=== PATIENT | male | born 1970 | race Caucasian/White ===

== ENCOUNTER → 2018-03-01 18:10 | Outpatient (CLI) | payer OTHER, SELFPAY ==
--- NOTE | 2018-03-01 | DI.MRI.S_ITS ---
PROCEDURE: MR PELVIS WO CON INDICATIONS: SI JOINT PAIN TECHNIQUE: Noncontrast axial and oblique coronal T1 spin echo and STIR through the sacroiliac joints. COMPARISON: [facility], MR, MR LUMBAR SPINE WO CON, 03/01/2018, 18:26. [facility], MR, MR PELVIS WITHOUT CONTRAST, 07/01/2017, 15:08. FINDINGS: Image quality: Excellent. Bones: The sacroiliac joints appear intact. No adjacent bone marrow edema to suggest active sacroiliitis. No bony ankylosis. No suspicious marrow space occupying lesions. Soft tissues: No presacral masses. Rectum appears normal in caliber and wall thickness. No pathologic free pelvic fluid. IMPRESSION: No trauma to the pelvis is seen, no evidence of sacroiliitis or ankylosing spondylitis. Source of current SI joint pain is not identified. Dictated by: Lukasz Tineo M.D. on 03/02/2018 at 12:08 Approved by: Lukasz Tineo M.D. on 03/02/2018 at 12:11
--- NOTE | 2018-03-01 18:14 | DI.MRI.S_ITS ---
PROCEDURE: MR LUMBAR SPINE WO CON INDICATIONS: SACROILITIS; TECHNIQUE: Noncontrast sagittal T1 spin echo and T2 fast echo, sagittal STIR, axial T1 and T2 fast spin echo through the lumbar spine. In cases with scoliosis, additional coronal T2 fast spin echo may be performed. COMPARISON: [facility], , L-SPINE WITHOUT CONTRAST, 01/14/2008, 8:25. FINDINGS: Image quality: Excellent. Alignment and Curvature: There is normal bony alignment. Bone Marrow: Mild reactive endplate changes noted adjacent to the L1-L2, L2-L3, L4-L5 and L5-S1 discs. No acute vertebral body compression fractures. Spinal Cord: Conus medullaris terminates at the T12 level. Visualized cord demonstrates normal signal and size. Paraspinous Soft Tissues: No paravertebral masses. L1-L2: Slight loss of the signal. Minimal, diffuse disc bulge. Mild bilateral facet hypertrophy. No central stenosis. Mild bilateral neural foraminal narrowing. No neural impingement. L2-L3: Loss of disc signal and height. Moderate, diffuse disc bulge. Moderate facet and mild ligamentum flavum hypertrophy. Moderate narrowing of the central canal. Moderate right and severe left neural foraminal narrowing with flattening deformity exiting left L2 nerve root. L3-L4: Loss of disc signal. Minimal, diffuse disc bulge. Mild to moderate bilateral facet hypertrophy. Mild ligamentum flavum hypertrophy. Mild to moderate narrowing of the central canal. Moderate bilateral neural foraminal narrowing. No neural impingement. L4-L5: Loss of disc signal and height. Moderate, diffuse disc bulge. Small central disc protrusion superimposed on diffuse disc bulge. Mild to moderate bilateral facet and moderate ligamentum flavum hypertrophy. Severe narrowing of the central canal. Moderate to severe right and moderate left neural foraminal narrowing. L5-S1: Slight loss of the signal. Mild right and moderate left facet hypertrophy. No central stenosis. Mild left neural foraminal narrowing. No neural impingement IMPRESSION: 1. Multilevel degenerative disc disease. 2. Multilevel facet arthropathy. 3. Severe L4-L5 central canal stenosis. Moderate to L2-L3 central canal narrowing. Mild to moderate L3-L4 central canal narrowing. 4. Moderate right and severe left L2-L3 neural foraminal narrowing. Moderate to severe right and moderate left L4-L5 neural foraminal narrowing. Moderate bilateral L3-L4 neural foraminal narrowing. Mild bilateral L1-L2 neural foraminal narrowing. Mild left L5-S1 neural foraminal narrowing. 5. Flattened deformity of the exiting left L2 nerve root secondary to neural foraminal narrowing. Please correlate with clinical data. Dictated by: Lita Irene MD, PhD on 03/02/2018 at 15:19 Approved by: Lita Irene MD, PhD on 03/02/2018 at 15:32
== END ==
PROVIDERS: Family Provider Family Medicine; PCP Family Medicine; Visit Provider Family Medicine
DX: M53.3 Sacrococcygeal disorders, not elsewhere classified (principal); M51.36 Other intervertebral disc degeneration, lumbar region; M47.816 Spondylosis without myelopathy or radiculopathy, lumbar region; M48.061 Spinal stenosis, lumbar region without neurogenic claudication
CPT/HCPCS: 72148; 72195

== ENCOUNTER 2019-05-09 08:07 | Emergency (ER) | payer OTHER, SELFPAY ==
[2019-05-09 08:10] VITALS: BP 149/104; PULSE 74; RESP 18; TEMP 36.2; O2SAT 95; BMI 38.0
--- NOTE | 2019-05-09 08:35 | ED_ITS ---
HPI - Headache General Chief Complaint: Headache Stated Complaint: Headache for 10 days Time Seen by Provider: 05/09/19 08:33 Source: patient Mode of arrival: Ambulatory Limitations: no limitations History of Present Illness HPI Narrative: Patient is a 49-year-old male who presents with headache ongoing for the last 10 days. He he actually had a head CT as an outpatient which I do not have record of 3 days ago which was negative. He apparently gets frequent sinus infections her pre as an had 1 and number of years he has however had 2 episodes of meningitis from sinus infection. He has had some body aches but no fever chills he has no neck pain he has no numbness tingling or weakness. He says the here on top of his head is sensitive to touch he feels nauseous but no vomiting. MD Complaint: headache Onset (ago): day(s) Location: frontal Severity: moderate Quality: aching Related Data Home Medications Medication Instructions Recorded Confirmed Budesonide Sinus 6 mg IRRIGATION DIRECTED 05/09/19 05/09/19 allopurinol 100 mg PO BID 05/09/19 05/09/19 colchicine 0.6 mg PO BID 05/09/19 05/09/19 lisinopril 10 mg PO DAILY 05/09/19 05/09/19 meloxicam 15 mg PO DAILY 05/09/19 05/09/19 Allergies Allergy/AdvReac Type Severity Reaction Status Date / Time codeine [CODEINE] Allergy Unknown ITCH-UNKNOWN Unverified 08/19/17 12:57 SEVERITY PER PT zolpidem [ZOLPIDEM] AdvReac Severe I FREAKED Unverified 08/19/17 12:57 OUT Review of Systems Review of Systems ROS Unobtainable: All systems reviewed & are unremarkable except as noted in HPI and below Constitutional Constitutional: Denies chills, Denies fever(s), Reports headache(s), Denies lethargy and Denies weakness Eyes Eyes: Denies change in vision, Denies eye discharge, Denies irritation and Denies loss of vision ENT Ears, Nose, Mouth, and Throat: Denies change in voice, Reports headache(s), Den ies neck pain and Denies sore throat Cardiovascular Cardiovascular: Denies chest pain, Denies irregular heart rhythm, Denies lightheadedness, Denies palpitations, Denies dyspnea, Denies dyspnea on exertion and Denies orthopnea Respiratory Respiratory: Denies cough, Denies dyspnea, Denies dyspnea on exertion and Denies wheezing Gastrointestinal Gastrointestinal: Denies abdominal pain, Denies change in bowel habits, Denies diarrhea, Denies nausea and Denies vomiting Genitourinary Genitourinary: Denies hematuria, Denies flank pain, Denies urinary incontinence and Denies urinary urgency Musculoskeletal Musculoskeletal: Denies neck pain Integumentary/Breasts Skin/Breast: Denies pruritus, Denies erythema, Denies rash and Denies wounds Neurologic Neurologic: Reports as per HPI, Denies confusion, Reports headache(s), Denies loss of vision and Denies weakness Psychiatric Psychiatric: Denies anxiety, Denies confusion, Denies depression, Denies homicidal ideation and Denies suicidal ideation Endocrine Endocrine: Denies palpitations Allergic/Immunologic Allergic/Immunologic: Denies wheezing Patient History Medical History (Updated 05/09/19 @ 11:33 by Ketty Wesley DO) Meningitis (Acute) Sinusitis (Acute) Exam Initial Vital Signs Initial Vital Signs: Vital Signs Temperature 97.2 F L 05/09/19 08:10 Pulse Rate 74 05/09/19 08:10 Respiratory Rate 18 05/09/19 08:10 Blood Pressure 149/104 H 05/09/19 08:10 Pulse Oximetry 95 05/09/19 08:10 GENERAL: Alert well-appearing and in no acute distress. HEENT: Head atraumatic,EOMI, pupils reactive, face symmetric, neck is supple no meningeal signs CARDIOVASCULAR: Regular rate and rhythm without murmurs, rubs or gallops. RESPIRATORY: Breath sounds equal bilaterally, no wheezes rales or rhonchi. ABDOMEN: Soft, nontender. Normoactive bowel sounds all 4 quadrants. No guarding or rebound. EXTREMITIES: Normal range of motion, no clubbing or edema. Neurovascularly intact NEUROLOGICAL: Alert and oriented x4.Normal gait and speech. Cranial nerves II through XII grossly intact. Gluer Machine Operator strength equal bilaterally SKIN: Warm, dry, no laceration, no petechiae, no rashes or lesions. Course Orders Ordered: ED Orders 05/09/19 09:24 Complete Blood Count AUTO DIFF Stat Comprehensive Metabolic Panel Stat 05/09/19 09:35 Influenza A & B (PCR) Stat 05/09/19 10:36 CT head/brain wo con Stat Discontinued Medications Diphenhydramine HCl (Benadryl) 25 mg IV NOW ONE Stop: 05/09/19 08:53 Last Admin: 05/09/19 09:29 Dose: 25 mg Documented by: BOB Hydromorphone HCl (Dilaudid) 0.5 mg IV NOW ONE Stop: 05/09/19 10:34 Last Admin: 05/09/19 10:57 Dose: 0.5 mg Documented by: DOROTHEA Sodium Chloride (Normal Saline 0.9%) 1,000 mls @ 1,000 mls/hr IV BOLUS ONE Stop: 05/09/19 09:51 Last Infusion: 05/09/19 10:52 Dose: 0 mls/hr Documented by: Admin: 05/09/19 09:27 Dose: 1,000 mls/hr Documented by: BOB Ketorolac Tromethamine (Toradol) 30 mg IV NOW ONE Stop: 05/09/19 08:53 Last Admin: 05/09/19 09:28 Dose: 30 mg Documented by: BOB Prochlorperazine (Compazine) 10 mg IV NOW ONE Stop: 05/09/19 08:53 Last Admin: 05/09/19 09:31 Dose: 10 mg Documented by: BOB Vital Signs Vital signs: Vital Signs - 8 hr 05/09/19 08:10 05/09/19 10:00 05/09/19 11:00 Temperature 97.2 F L Pulse Rate 74 75 52 L Respiratory Rate 18 16 17 Blood Pressure 149/104 H Blood Pressure [Left Arm] 129/86 127/89 Pulse Oximetry 95 99 93 05/09/19 11:42 Temperature Pulse Rate 50 L Respiratory Rate 14 Blood Pressure 122/77 Blood Pressure [Left Arm] Pulse Oximetry 96 MDM - Headache Lab Data Attestation: I reviewed the patient's lab results. Result diagrams: 05/09/19 09:24 05/09/19 09:24 Labs: Lab Results 05/09/19 05/09/19 05/09/19 Range/Units 09:24 09:24 09:35 WBC 5.3 (4.5-11.0) X10^3/uL RBC 4.96 (4.5-5.9) X10^6/uL Hgb 14.7 (13.5-17.5) g/dL Hct 43.4 (41-53) % MCV 87.6 (80-100) fL MCH 29.7 (26-34) PG MCHC 33.9 (30-36) % RDW 13.0 (11.6-14.8) % Plt Count 186 (150-400) X10^3/uL Neut % (Auto) 51.0 (50-75) % Lymph % (Auto) 33.6 (25-40) % Placer % (Auto) 9.3 (3-14) % Eos % (Auto) 5.4 H (2-4) % Baso % (Auto) 0.7 (0-2) % Neut # (Auto) 2700 (2894-9456) /uL Lymph # (Auto) 1800 (9846-4321) /uL Placer # (Auto) 500 (0-900) /uL Eos # (Auto) 300 (0-450) /uL Baso # (Auto) 0 (0-100) /uL Sodium 141 (137-145) mmol/L Potassium 4.6 (3.4-5.1) mmol/L Chloride 106 (98-107) mmol/L Carbon Dioxide 25 (22-32) mmol/L BUN 12 (9-20) mg/dL Creatinine 0.90 (0.66-1.25) mg/dL Estimated GFR > 60.0 (>60) mL/min BUN/Creatinine Ratio 13.3 (6-22) Glucose 105 H (70-100) mg/dL Calcium 9.8 (8.4-10.2) mg/dL Total Bilirubin 0.6 (0.2-1.3) mg/dL AST 44 (17-59) IU/L ALT 27 (<50) IU/L Alkaline Phosphatase 49 (38-126) U/L Total Protein 7.0 (6.3-8.2) g/dL Albumin 4.5 (3.5-5.0) g/dL Globulin 2.5 (1.7-4.1) g/dL Albumin/Globulin Ratio 1.8 (1.0-2.8) Influenza A (RT-PCR) Flu a negative (NEGATIVE) Influenza B (RT-PCR) Flu b negative (NEGATIVE) Imaging Data CT scan - head: Radiologist's Impression: PROCEDURE: CT HEAD/BRAIN WO CON INDICATIONS: headache TECHNIQUE: Noncontrast 4.5 mm thick angled axial sections acquired from the foramen magnum to the vertex, with coronal and sagittal reformats. For radiation dose reduction, the following was used: automated exposure control, adjustment of mA and/or kV according to patient size. COMPARISON: [facility], CT, HEAD WITHOUT CONTRAST, 07/21/2013, 6:55. FINDINGS: Image quality: Excellent. CSF spaces: Basal cisterns are patent. No extra-axial fluid collections. The ventricles are symmetric in size and shape. Brain: No intracranial bleeds or masses. There is cerebral volume loss for age, with resultant ventricular and sulcal prominence. There are periventricular and deep white matter chronic small vessel ischemic changes. There is intracranial internal carotid artery atherosclerosis. Skull and face: Calvarium and visualized facial bones appear intact, without suspicious lesions. There is scalp edema and mild swelling image 10/2 at the right posterior region Sinuses: Visualized sinuses and mastoids are clear. IMPRESSION: No acute intracranial process. Soft tissue swelling of the right posterior scalp, nonspecific and recommend clinical correlation Dictated by: Kareem Mcdaniel M.D. on 05/09/2019 at 11:22 Approved by: Kareem Mcdaniel M.D. on 05/09/2019 at 11:2 MDM Narrative Medical decision making narrative: Patient's pain is better after Dilaudid head CT is negative. Head is re-examined CT noted some swelling on the right is side I did not appreciate any clinically he denies any trauma. I recommended ice. Continue to rest and conservative treatment. At this time his neck is supple he has no signs of meningitis. Recommend outpatient follow-up Discharge Plan Departure Patient Disposition: Home Clinical Impression: Headache Qualifiers: Headache type: unspecified Headache chronicity pattern: acute headache Intractability: not intractable Qualified Code(s): R51 - Headache Discharge Date/Time: 05/09/19 11:42 Instructions: DI for Headache Activity Restrictions/Additional Instructions: *You have been diagnosed with headache *What to do: Increase fluid intake at this time no sign of sinus infection or influenza. *Continue to take medications as directed Tylenol 1000 mg every 6 hours if needed for kzef-ao-omvqadqd pain *Follow up with your primary care provider in 2-3 days *Return to ER if you should have worsening headache weakness persistent vomiting or any new, worsening or concerning symptoms Prescriptions: No Action meloxicam 15 mg tablet 15 mg PO DAILY RF: 0 allopurinol 100 mg tablet 100 mg PO BID RF: 0 lisinopril 10 mg tablet 10 mg PO DAILY RF: 0 colchicine 0.6 mg tablet 0.6 mg PO BID RF: 0 Budesonide Sinus 6 mg 6 mg irrigation DIRECTED RF: 0 Referrals: Mitul Archer MD [Primary Care Provider] -
[2019-05-09] MEDS: SODIUM CHLORIDE 0.9% 1,000 ML 1000 ML IV (09:27)
[2019-05-09 09:28] LABS: Add Manual Diff / Slide Review NO; Basophils Absolute Auto 0 /uL (0-100); Basophils Percent Auto 0.7 % (0-2); Eosinophils Absolute Auto 300 /uL (0-450); Eosinophils Percent Auto 5.4 % (2-4); Hematocrit 43.4 % (41-53); Hemoglobin 14.7 g/dL (13.5-17.5); Lymphocytes Absolute Auto 1800 /uL (1100-4500); Lymphocytes Percent Auto 33.6 % (25-40); Mean Corpuscular HGB Conc 33.9 % (30-36); Mean Corpuscular Hemoglobin 29.7 PG (26-34); Mean Corpuscular Volume 87.6 fL (80-100); Monocytes Absolute Auto 500 /uL (0-900); Monocytes Percent Auto 9.3 % (3-14); Neutrophils Absolute Auto 2700 /uL (1500-7000); Platelet Count 186 X10^3/uL (150-400); Red Blood Cell Count 4.96 X10^6/uL (4.5-5.9); White Blood Cell Count 5.3 X10^3/uL (4.5-11.0)
[2019-05-09] MEDS: KETOROLAC 60 MG/2 ML VIAL 30 MG IV (09:28)
[2019-05-09] MEDS: diphenhydrAMINE 50 MG/ML VIAL 25 MG IV (09:29)
[2019-05-09] MEDS: PROCHLORPERAZINE 10 MG/2 ML VIAL IV (09:31)
[2019-05-09 09:41] LABS: Alanine Aminotransferase 27 IU/L (<50); Albumin 4.5 g/dL (3.5-5.0); Albumin Globulin Ratio 1.8 (1.0-2.8); Alkaline Phosphatase 49 U/L (38-126); Aspartate Aminotransferase 44 IU/L (17-59); BUN Creatinine Ratio 13.3 (6-22); Bilirubin Total 0.6 mg/dL (0.2-1.3); Blood Urea Nitrogen 12 mg/dL (9-20); Calcium 9.8 mg/dL (8.4-10.2); Carbon Dioxide 25 mmol/L (22-32); Chloride 106 mmol/L (98-107); Estimated Glomerular Filt Rate > 60.0 mL/min (>60); Globulin 2.5 g/dL (1.7-4.1); Glucose 105 mg/dL (70-100); HEMOLYSIS 49 (0-50); Potassium 4.6 mmol/L (3.4-5.1); Sodium 141 mmol/L (137-145)
[2019-05-09 10:00] VITALS: BP 129/86; PULSE 75; RESP 16; O2SAT 99
--- NOTE | 2019-05-09 10:36 | DI.CT.S_ITS ---
PROCEDURE: CT HEAD/BRAIN WO CON INDICATIONS: headache TECHNIQUE: Noncontrast 4.5 mm thick angled axial sections acquired from the foramen magnum to the vertex, with coronal and sagittal reformats. For radiation dose reduction, the following was used: automated exposure control, adjustment of mA and/or kV according to patient size. COMPARISON: [facility], CT, HEAD WITHOUT CONTRAST, 07/21/2013, 6:55. FINDINGS: Image quality: Excellent. CSF spaces: Basal cisterns are patent. No extra-axial fluid collections. The ventricles are symmetric in size and shape. Brain: No intracranial bleeds or masses. There is cerebral volume loss for age, with resultant ventricular and sulcal prominence. There are periventricular and deep white matter chronic small vessel ischemic changes. There is intracranial internal carotid artery atherosclerosis. Skull and face: Calvarium and visualized facial bones appear intact, without suspicious lesions. There is scalp edema and mild swelling image 10/2 at the right posterior region Sinuses: Visualized sinuses and mastoids are clear. IMPRESSION: No acute intracranial process. Soft tissue swelling of the right posterior scalp, nonspecific and recommend clinical correlation Dictated by: Kareem Mcdaniel M.D. on 05/09/2019 at 11:22 Approved by: Kareem Mcdaniel M.D. on 05/09/2019 at 11:26
[2019-05-09] MEDS: HYDROMORPHONE 0.5 MG INJ IV (10:57)
[2019-05-09 11:00] VITALS: BP 127/89; PULSE 52; RESP 17; O2SAT 93
[2019-05-09 11:42] VITALS: BP 122/77; PULSE 50; RESP 14; O2SAT 96
[2019-05-09 11:48] LABS: Influenza B - CEPHEID Flu B NEGATIVE (NEGATIVE)
[2019-05-09 11:50] LABS: Influenza A - CEPHEID Flu A NEGATIVE (NEGATIVE)
== END 2019-05-09 11:42 | disposition home or self-care (01) ==
PROVIDERS: Emergency Provider Emergency Medicine; PCP Family Medicine
DX: R51 Headache (principal); R11.0 Nausea
CPT/HCPCS: 36415; 70450; 80053; 85025; 87502; 96361; 96374; 96375; 99284; J0780; J1170; J1200; J1885

== ENCOUNTER → 2019-05-31 16:03 | Outpatient (CLI) | payer OTHER, SELFPAY ==
--- NOTE | 2019-05-31 | DI.MRI.S_ITS ---
PROCEDURE: MR CERVICAL SPINE WO CON INDICATIONS: radiculopathy, cervical region TECHNIQUE: Noncontrast sagittal T1 spin echo and T2 fast spin echo, sagittal STIR, foraminal oblique sagittal T2 fast spin echo, and axial gradient echo or T2 fast spin echo through the cervical spine. COMPARISON: [facility], RF, CERVICAL SNRB, 07/11/2016, 8:40. [facility], CT, C-SPINE WITHOUT CONTRAST, 10/03/2015, 10:56. [facility], MR, C-SPINE WITHOUT CONTRAST, 12/27/2015, 19:30. [facility], CT, CT HEAD/BRAIN WO CON, 05/09/2019, 10:48. [facility], MR, C-SPINE WITHOUT CONTRAST, 06/30/2016, 13:51 (images only, no report). [facility], CT, CT SINUS WITHOUT CONTRAST, 05/06/2019, 14:51. [facility], CT, C-SPINE WITHOUT CONTRAST, 06/30/2016, 13:41. FINDINGS: Image quality: Diagnostic, with note made of motion artifact. Alignment and Curvature: There is normal bony alignment. Bone Marrow: Marrow demonstrates normal overall signal. Spinal Cord: Visualized spinal cord has normal size and signal. No cerebellar tonsillar herniation. Paraspinous Soft Tissues: No paravertebral masses. Prevertebral soft tissues are normal in thickness. Since the prior MRI, there has been expansion of the postoperative hardware, which is now seen anteriorly C4-C6. Disc spacers are seen at C4-C5 and C5-C6. C2-C3: The disc height is well-preserved. Loss of disc signal is seen at this level. Vqoc-qd-nzdcoupt disc osteophyte complex is seen, which is eccentric to the left. There is moderate left-sided and moderate right-sided facet hypertrophy seen. There is moderate to severe left-sided and moderate right-sided neural foraminal narrowing seen. When comparison is made with the prior examination, these findings are similar. C3-C4: Moderate to prominent disc osteophyte complex is seen. There is moderate to severe bilateral neural foraminal narrowing seen. Moderate central canal narrowing is seen, position mass effect upon the ventral spinal cord. When comparison is made with the prior examination, these findings are similar. C4-C5: Postoperative changes are seen anteriorly at this level. Moderate disc osteophyte complex is seen, which is eccentric to the right. There is moderate to prominent right-sided and moderate left-sided facet hypertrophy seen. There is at least moderate bilateral neural foraminal narrowing seen. No significant central canal narrowing is seen. The degree of central canal narrowing is clearly improved compared to the prior MRI. C5-C6: There are postoperative changes seen at this level. Mtty-vk-gadwvokb disc osteophyte complex is seen. There is at least moderate bilateral neural foraminal narrowing seen in the sacrum mild central degree of central canal narrowing is improved compared to the prior MRI. C6-C7: Mild loss of disc height is seen. Loss of disc signal is seen. Moderate generalized disc osteophyte complex is seen. Uncovertebral joint hypertrophy is seen at this level. There is moderate to severe bilateral neural foraminal narrowing seen. Moderate central canal narrowing is seen, with associated mass effect upon the ventral spinal cord, as on series 4 image 31. These degenerative changes are slightly progressed compared to the 2017 MRI. C7-T1: The disc height is well-preserved. Loss of disc signal is seen at this level. Fgpc-hl-kxcqcikm bilateral neural foraminal narrowing can be seen. Yzof-dr-viqcifux central canal narrowing is seen. When comparison is made with the prior examination, these findings are similar. IMPRESSION: Revision of postoperative change since the prior 2017 MRI examination. Clear interval improvement in the degree of central canal narrowing at C4-C5 and C5-C6 compared to 2017 Progression of degenerative change at C6-C7 compared to 2017. Dictated by: Salvatore Ware M.D. on 05/31/2019 at 17:10 Approved by: Salvatore Ware M.D. on 05/31/2019 at 17:19
== END ==
PROVIDERS: PCP Family Medicine; Visit Provider Physician Assistant Medical
DX: M47.22 Other spondylosis with radiculopathy, cervical region (principal); M48.02 Spinal stenosis, cervical region
CPT/HCPCS: 72141

== ENCOUNTER 2019-07-01 07:45 | Outpatient (CLI) | payer OTHER, SELFPAY ==
[2019-07-01] VITALS (9 sets, daily range): BP systolic 87–137; BP diastolic 58–111; PULSE 72–81; RESP 16–18; TEMP 36.2; O2SAT 95–99
--- NOTE | 2019-07-01 07:46 | DI.RAD.S_ITS ---
PROCEDURE: PAIN C/T INTERLAMINAR INJECT INDICATIONS: CERVICAL DISC DISPLACEMENT FINDINGS: Immediate postoperative examination after anterior fusion plating spanning from C4-C5 and C6, with faintly visualized interbody disc prosthesis devices at C4-5 and C5-6. IMPRESSION: Normal alignment established after C4-C6 fusion procedure with interbody disc prosthesis devices placed at C4-5 and C5-6. Dictated by: Lukasz Tineo M.D. on 07/01/2019 at 10:17 Approved by: Lukasz Tineo M.D. on 07/01/2019 at 10:19
[2019-07-01] MEDS: MIDAZOLAM 5 MG/5 ML VIAL IV (08:51)
[2019-07-01] MEDS: fentaNYL 100 MCG/2 ML INJ 50 MCG IV (08:51)
[2019-07-01] MEDS: IOPAMIDOL 15 ML VIAL 3 ML INJ (08:56)
[2019-07-01] MEDS: BUPIVACAINE 0.25% (PF) VIAL 2 ML INJ (08:56)
[2019-07-01] MEDS: DEXAMETHASONE 10 MG/ML VIAL 30 MG INJ (08:57)
--- NOTE | 2019-07-01 09:00 | PC.NURSE ---
ASSISTING PT OFF TABLE AND TRANSPORTING TO POST PROC AREA IN STABLE CONDITION. PASSING RN CARE OF PT OFF TO SMITH Rooney RN.
--- NOTE | 2019-07-01 09:05 | PM.PROC.1 ---
Procedures Date/Time Date of procedure: 07/01/19 Time of procedure: 09:05 General Procedure description: PREOP DIAGNOSIS 1. CERVICAL STENOSIS, 2. CERVICAL HNP WITH UPPER EXTREMITY RADICULAR FEATURES, POST OP DIAGNOSIS 1. CERVICAL STENOSIS, 2. CERVICAL HNP WITH UPPER EXTREMITY RADICULAR FEATURES, PROCEDURES 1. FLUORSCOPICALLY GUIDED CONTRAST CONTROLLED INTERLAMINAR EPIDURAL STEROID INJECTION - C6/7 TL CLEVE PHYSICIAN: Pete Guy DO INDICATIONS Kain is referred by Dr. Meade and Dr. Archer for treatment of Cervical HNP with Upper Extremity Paresthesias. FINDINGS Cervical Stenosis due to disc deterioration and nerve root irritation and nerve root irritation DESCRIPTION OF PROCEDURE Fluoroscopically guided, contrast-controlled C6/7 translaminar epidural steroid injection with conscious sedation. Following review of allergy and review of potential side effects and complications, including, but not necessarily limited to, infection, allergic reaction, local tissue breakdown, temporary as well as permanent nerve injury, stroke, paralysis, and possible , the patient indicated that patient understood and agreed to proceed. An informed consent document was signed by the patient, witnessed by a nurse, and placed in the patient's chart. Additionally, other treatment options including modalities, medications, and physical therapy were reviewed with the patient. After review of previous anaesthesic history and IV conscious sedation the patient was deemed safe to proceed with todays procedure with IV conscious sedation as ASA class II designation. Safety time-out was performed to confirm patient ID, procedure to be performed and site of procedure. IV sedation was accomplished with a combination of 5mg of Versed and 50mcg of Fentanyl administered by the RN after DO order, titrated to patient comfort during the course of the procedure while the patient remained responsive to all verbal commands. In the prone position, following sterile prep and drape of the cervical region, the C6/7 translaminar space was identified fluoroscopically. The skin was anesthetized via a 25-gauge 1.5-inch needle with 1% lidocaine solution. At this point, a 25-gauge, 2.5-inch short bevel spinal needle was atraumatically introduced and advanced under fluoroscopic guidance into epidural space at the C6/7 translaminar space. Depth was confirmed on lateral view. Radiological data, including multiple fluoroscopic views of the cervical spine, reveal a spinal needle at the C6/7 translaminar space. Lateral views then show placement of the needle in the epidural space. Subsequent views show contrast material flowing superiorly and inferiorly in the epidural space. DSA fluoroscopy with live contrast injection, once again, confirmed no vascular or intrathecal uptake. At this point, using loss of resistance technique with saline and air, the epidural space was entered. Following negative aspiration, injection of approximately 1.5 cc of Isovue-200 with live fluoroscopy in the AP view confirmed epidural flow in the epidural space without vascular or intrathecal uptake observed. Subsequently, a test dose of 1cc of 0.25%marcaine solution was injected and patient was observed for two minutes without signs or symptoms of complications, including abdominal pain, shortness of breath, bilateral upper or lower extremity weakness, nausea and vomiting, prior to steroid injection. At this point, 3cc or 30mg of dexamethasone was then injected without incident. The patient tolerated the procedure well without signs or symptoms of complications prior to being transferred to the recovery area for further monitoring, The patient was then transferred to the recovery area where they were observed for an appropriate period of time after the injection. The patient reported a VAS score of 6 prior to the procedure and a post-procedure VAS of 0. Total Fluoroscopy Time: 26 seconds Total Conscious Time: 24min POST OP INSTRUCTIONS The patient was provided a Pain Log to continue to record their response to the target-specific procedure prior to follow-up visit with the referring provider. Additionally, specific post-injection care instructions and a contact number to our office were provided if concerns arise regarding possible complications associated with the procedure are suspected. Pete Guy DO Complications: none
--- NOTE | 2019-07-01 14:42 | PC.NURSE ---
late entry: Pt returned to post procedure via wheelchair. He is A/O and able to transfer independently from [facility] to chair. Monitoring resumed from OXANA Ramírez
== END 2019-07-01 09:28 ==
LOC: RAD 07:46
PROVIDERS: PCP Family Medicine; Referring Provider Family Medicine; Visit Provider Physical Medicine & Rehabilitation
DX: M48.02 Spinal stenosis, cervical region (principal); M50.123 Cervical disc disorder at C6-C7 level with radiculopathy
CPT/HCPCS: 62321; 99152; J1100; J2250; J3010

== ENCOUNTER → 2019-10-13 18:32 | Outpatient (CLI) | payer OTHER, SELFPAY ==
--- NOTE | 2019-10-13 18:33 | DI.MRI.S_ITS ---
PROCEDURE: MR CERVICAL SPINE WO CON INDICATIONS: BILATERAL ARM PAIN AND BURNING TECHNIQUE: Noncontrast sagittal T1 spin echo and T2 fast spin echo, sagittal STIR, foraminal oblique sagittal T2 fast spin echo, and axial gradient echo or T2 fast spin echo through the cervical spine. COMPARISON: [facility], CR, SPINE CERVICAL 2 OR 3VW, 06/16/2016, 16:04. [facility], , MR CERVICAL SPINE WO CON, 05/31/2019, 16:21. FINDINGS: Image quality: Excellent. Alignment and Curvature: Postsurgical changes related to ACDF from the level of C4-C6. Straightening of the normal lordotic curvature. Bone Marrow: Multilevel degenerative endplate sclerosis and spurring. Diffuse facet arthropathy. Spinal Cord: Visualized spinal cord has normal size and signal. No cerebellar tonsillar herniation. Paraspinous Soft Tissues: No paravertebral masses. Prevertebral soft tissues are normal in thickness. C2-C3: Mild canal narrowing. Severe bilateral foraminal stenosis with nerve root compression. This appears unchanged on the right and progressed on the left C3-C4: Mild/moderate canal narrowing which is unchanged severe bilateral foraminal stenoses, probably unchanged C4-C5: Mild canal narrowing. Severe bilateral foraminal stenoses. These appear grossly unchanged C5-C6: Mild canal narrowing. Mild left foraminal stenosis. Severe right foraminal stenosis with nerve root compression, overall grossly unchanged. C6-C7: Severe canal stenosis, unchanged. Mild to moderate left foraminal stenosis unchanged. Severe right foraminal stenosis with nerve root compression also unchanged C7-T1: Mild canal narrowing. Mild left foraminal stenosis. Moderate right foraminal narrowing without nerve root compression, grossly unchanged IMPRESSION: Slight interval progression in severe left C2-C3 foraminal stenosis since the prior study. Elsewhere, grossly unchanged examination as above Redemonstration of severe C6-C7 canal stenosis. Numerous bilateral severe foraminal stenoses as detailed above by spinal level. Dictated by: Kareem Mcdaniel M.D. on 10/14/2019 at 8:23 Approved by: Kareem Mcdaniel M.D. on 10/14/2019 at 8:41
== END ==
PROVIDERS: PCP Family Medicine; Referring Provider Neurological Surgery; Visit Provider Neurological Surgery
DX: M79.601 Pain in right arm (principal); M79.602 Pain in left arm; M48.02 Spinal stenosis, cervical region; R20.8 Other disturbances of skin sensation
CPT/HCPCS: 72141

== ENCOUNTER → 2019-11-28 10:06 | Outpatient (CLI) | payer OTHER, SELFPAY ==
--- NOTE | 2019-11-28 | DI.RAD.S_ITS ---
PROCEDURE: XR CERVICAL SPINE 2V OR 3V INDICATIONS: Arthrodesis status TECHNIQUE: For view(s) of the cervical spine were acquired. COMPARISON: [facility], XA, PAIN C/T INTERLAMINAR INJECT, 07/01/2019, 8:49. [facility], CT, C-SPINE WITHOUT CONTRAST, 06/30/2016, 13:41. FINDINGS: Bones: No fractures or dislocations to the T1 level. The lateral masses of C1 appear intact on the odontoid view. No suspicious bony lesions. Prior CT scanning from 06/12/16 and show on presence of an articulated intervertebral disc prosthesis at C4-5 and C6-7. Subsequent pain management plain film imaging 07/01/19 had shown an anterior fusion plate crossing from C4 through C6, with what appears to be interbody disc prosthesis device is unchanged from earlier, at the 2 intervening levels. The current examination shows removal of the prior C4 through C6 anterior fusion plate, placement of a C6-C7 anterior fusion plate, maintenance of the interbody disc prosthesis devices at C4-5 and C5-6, and placement of a new intervertebral disc prosthesis at C6-C7. Normal alignment is stab wished. Soft tissues: No prevertebral soft tissue swelling. IMPRESSION: Normal alignment is established after anterior fusion plate revision and placement of new fusion plate between C6 and C7 with interbody disc prosthesis also at that level. Dictated by: Lukasz Tineo M.D. on 11/28/2019 at 11:40 Approved by: Lukasz Tineo M.D. on 11/28/2019 at 11:45
== END ==
PROVIDERS: PCP Family Medicine; Referring Provider Neurological Surgery; Visit Provider Neurological Surgery
DX: Z09 Encounter for follow-up examination after completed treatment for conditions other than malignant neoplasm (principal); Z98.1 Arthrodesis status
CPT/HCPCS: 72040

== ENCOUNTER → 2019-12-21 16:23 | Outpatient (CLI) | payer OTHER, SELFPAY ==
--- NOTE | 2019-12-21 16:24 | DI.MRI.S_ITS ---
PROCEDURE: MR CERVICAL SPINE WO/W CON INDICATIONS: right C8 radicu s/p C4-C7 ACDF TECHNIQUE: Noncontrast sagittal T1 spin echo and T2 fast spin echo, sagittal STIR, foraminal oblique sagittal T2 fast spin echo, axial gradient echo or T2 fast spin echo through the cervical spine. After the administration of contrast, axial and sagittal T1 spin echo with fat saturation through the cervical spine. COMPARISON: [facility], , CERVICAL SPINE 2 OR 3 VIEWS, 09/27/2015, 12:14. [facility], CT, C-SPINE WITHOUT CONTRAST, 10/03/2015, 10:56. [facility], MR, C-SPINE WITHOUT CONTRAST, 12/27/2015, 19:30. [facility], CT, C-SPINE WITHOUT CONTRAST, 06/30/2016, 13:41. [facility], MR, C-SPINE WITHOUT CONTRAST, 06/30/2016, 13:51. [facility], CR, XR CERVICAL SPINE 2V OR 3V, 11/28/2019, 10:08. [facility], , MR CERVICAL SPINE WO CON, 10/13/2019, 18:57. FINDINGS: Image quality: There is artifact associated with the metallic hardware. Alignment and curvature: There is normal bony alignment. Marrow: Marrow is normal in overall signal, without suspicious enhancement. Spinal cord: Visualized spinal cord has normal size and signal. No cerebellar tonsillar herniation. No abnormal intramedullary enhancement. Paraspinous soft tissues: No paravertebral masses or suspicious enhancement. Postoperative changes are seen, with disc spacers at the C4-C5 and C5-C6 levels. Anterior fixation hardware is seen at C6-C7, with a disc spacer seen at this level. There is associated susceptibility artifact. C2-3: The disc height is well-preserved. Loss of disc signal is seen at this level. Moderate disc osteophyte complex is seen, which is eccentric to the left. Moderate facet joint hypertrophy is seen. There is moderate to severe right-sided and moderate left-sided neural foraminal narrowing seen. Mild central canal narrowing is seen. Stable from the prior study. C3-4: The disc height is well-preserved. Loss of disc signal is seen at this level. Bridging endplate osteophytes are seen. Moderate generalized disc osteophyte complex is seen. Moderate facet joint hypertrophy is seen. Moderate to severe bilateral neural foraminal narrowing is seen. There is at least moderate central canal narrowing seen. There is associated mass effect upon the ventral spinal cord. Stable from the prior study. C4-5: The disc height is well-preserved. Loss of disc signal is seen at this level. At least moderate disc osteophyte complex is seen, which is eccentric to the right. There is moderate bilateral neural foraminal narrowing seen, right worse than left. There is moderate to severe bilateral neural foraminal narrowing seen. Mild central canal narrowing is seen. No significant change from the prior. C5-6: Moderate generalized disc osteophyte complex is seen. There is moderate to prominent right-sided and moderate left-sided facet hypertrophy seen. There is moderate to severe right-sided and [id number] left-sided neural foraminal narrowing seen. Mild central canal narrowing is seen. Stable from the prior study. C6-7: Moderate generalized disc osteophyte complex is seen. Prominent facet hypertrophy is seen. There is moderate to severe bilateral neural foraminal narrowing seen, right worse than left. At least moderate central canal narrowing is seen. There is associated mass effect upon the ventral spinal cord. No significant change from the prior. C7-T1: Mild loss of disc height is seen. Loss of disc signal is seen. Moderate generalized disc osteophyte complex is seen. Moderate bilateral neural foraminal narrowing is seen, left worse than right. Mild to moderate central canal narrowing is seen. When comparison is made with the prior examination, these findings are similar. IMPRESSION: Postoperative changes and multiple levels of degenerative change are seen, which are similar to the recent prior MRI examination. No abnormal enhancement is seen. Dictated by: Salvatore Ware M.D. on 12/21/2019 at 17:02 Approved by: Salvatore Ware M.D. on 12/21/2019 at 17:09
== END ==
PROVIDERS: PCP Family Medicine; Referring Provider Physical Medicine & Rehabilitation; Visit Provider Physical Medicine & Rehabilitation
DX: M47.22 Other spondylosis with radiculopathy, cervical region (principal); Z98.1 Arthrodesis status
CPT/HCPCS: 72156

== ENCOUNTER → 2020-01-23 13:41 | Outpatient (CLI) | payer OTHER, SELFPAY ==
[2020-01-25 17:24] LABS: COVID19 Sendout Not Detected (Not Detect)
== END ==
PROVIDERS: PCP Family Medicine; Visit Provider Nurse Practitioner
DX: Z11.59 Encounter for screening for other viral diseases (principal)
CPT/HCPCS: 87635

== ENCOUNTER 2020-01-26 08:14 | Outpatient (CLI) | payer OTHER, SELFPAY ==
[2020-01-26] VITALS (8 sets, daily range): BP systolic 133–154; BP diastolic 75–99; PULSE 66–79; RESP 12–19; TEMP 36.4; O2SAT 95–99
--- NOTE | 2020-01-26 08:16 | DI.RAD.S_ITS ---
PROCEDURE: PAIN C/T INTERLAMINAR INJECT INDICATIONS: SPINAL STENOSIS COMPARISON: [facility], , PAIN C/T INTERLAMINAR INJECT, 07/01/2019, 8:49. FINDINGS: Fluoroscopic spot filming was performed to verify placement of a spinal needle at the C7-T1 level, as labeled on the films. Appropriate location(s) of the needle tip(s) was confirmed by injection of iodinated contrast. IMPRESSION: Intraprocedural examination within normal limits. Dictated by: Salvatore Ware M.D. on 01/26/2020 at 8:45 Approved by: Salvatore Ware M.D. on 01/26/2020 at 8:45
[2020-01-26] MEDS: fentaNYL 100 MCG/2 ML INJ 50 MCG IV (08:53)
[2020-01-26] MEDS: MIDAZOLAM 5 MG/5 ML VIAL IV (08:53)
[2020-01-26] MEDS: DEXAMETHASONE 10 MG/ML VIAL 30 MG INJ (09:00)
[2020-01-26] MEDS: IOPAMIDOL 15 ML VIAL 3 ML INJ (09:00)
[2020-01-26] MEDS: BUPIVACAINE 0.25% (PF) VIAL 2 ML INJ (09:00)
--- NOTE | 2020-01-26 09:21 | P.PCN_ITS ---
Date/Time/Diagnoses Date of procedure: 01/26/20 Time of procedure: 09:22 Pre-procedure diagnosis: 1. CERVICAL STENOSIS, 2. CERVICAL HNP WITH UPPER EXTREMITY RADICULAR FEATURES Procedure Notes Procedure: FLUORSCOPICALLY GUIDED CONTRAST CONTROLLED INTERLAMINAR EPIDURAL STEROID INJECTION - C7/T1 TL CLEVE Indications: Kain is referred by Dr. Archer for treatment of Cervical Stenosis. Physician: Pete Guy Total Fluoroscopy time (seconds): 30 Total sedation minutes: 30 Complications: none Procedure in detail & Post-procedure care: DESCRIPTION OF PROCEDURE Following review of allergy and review of potential side effects and co mplications, including, but not necessarily limited to, infection, allergic reaction, local tissue breakdown, temporary as well as permanent nerve injury, stroke, paralysis, and possible , the patient indicated that patient understood and agreed to proceed. An informed consent document was signed by the patient, witnessed by a nurse, and placed in the patient's chart. Additionally, other treatment options including modalities, medications, and physical therapy were reviewed with the patient. After review of previous anaesthesic history and IV conscious sedation the patient was deemed safe to proceed with todays procedure with IV conscious sedation as ASA class II designation. Safety time-out was performed to confirm patient ID, procedure to be performed and site of procedure. IV sedation was accomplished with a combination of 5mg of Versed and 50mcg of Fentanyl administered by the RN after DO order, titrated to patient comfort during the course of the procedure while the patient remained responsive to all verbal commands. In the prone position, following sterile prep and drape of the cervical region, the C7/T1 translaminar space was identified fluoroscopically. The skin was anesthetized via a 25-gauge 1.5-inch needle with 1% lidocaine solution. At this point, a 25-gauge, 2.5-inch short bevel spinal needle was atraumatically introduced and advanced under fluoroscopic guidance into epidural space at the C7/T1 translaminar space. Depth was confirmed on lateral view. Radiological data, including multiple fluoroscopic views of the cervical spine, reveal a spinal needle at the C7/T1 translaminar space. Lateral views then show placement of the needle in the epidural space. Subsequent views show contrast material flowing superiorly and inferiorly in the epidural space. DSA fluoroscopy with live contrast injection, once again, confirmed no vascular or intrathecal uptake. At this point, using loss of resistance technique with saline and air, the epidural space was entered. Following negative aspiration, injection of approximately 1.5 cc of Isovue-200 with live fluoroscopy in the AP view confirmed epidural flow in the epidural space without vascular or intrathecal uptake observed. Subsequently, a test dose of 1cc of 1% lidocaine solution was injected and patient was observed for two minutes without signs or symptoms of complications, including abdominal pain, shortness of breath, bilateral upper or lower extremity weakness, nausea and vomiting, prior to steroid injection. At this point, 3cc or 30mg of dexamethasone was then injected without incident. The patient tolerated the procedure well without signs or symptoms of complications prior to transfer to the recovery area for further monitoring The patient was then transferred to the recovery area where they were observed for an appropriate period of time after the injection. The patient reported a VAS score of 9 prior to the procedure and a post-procedure VAS of 1. POST OP INSTRUCTIONS The patient was provided a Pain Log to continue to record the patient's response to the target-specific procedure prior to the patient's follow-up visit with the referring physician. Additionally, specific post-injection care instructions and a contact number to our office were provided if concerns arise regarding possible complications associated with the procedure are suspected.
== END 2020-01-26 09:38 | disposition home or self-care (01) ==
LOC: RAD 08:16
PROVIDERS: PCP Family Medicine; Referring Provider Family Medicine; Visit Provider Physical Medicine & Rehabilitation
DX: M48.02 Spinal stenosis, cervical region (principal); M50.123 Cervical disc disorder at C6-C7 level with radiculopathy
CPT/HCPCS: 62321; 99152; 99153; J1100; J2250; J3010

== ENCOUNTER → 2020-02-15 12:13 | Outpatient (CLI) | payer OTHER, SELFPAY ==
--- NOTE | 2020-02-15 | DI.CT.S_ITS ---
PROCEDURE: CT CERVICAL SPINE WO CON INDICATIONS: Neck and arm pain following surgery TECHNIQUE: Noncontrast 3 mm thick sections acquired from the skull base to the T4 level. Sagittal and coronal reformats were then constructed. For radiation dose reduction, the following was used: automated exposure control, adjustment of mA and/or kV according to patient size. COMPARISON: [facility], MR, MR CERVICAL SPINE WO/W CON, 12/21/2019, 17:13. [facility], CR, XR CERVICAL SPINE 2V OR 3V, 11/28/2019, 10:08. [facility], MR, MR CERVICAL SPINE WO CON, 10/13/2019, 18:57. [facility], CT, C-SPINE WITHOUT CONTRAST, 06/30/2016, 13:41. [facility], MR, MR CERVICAL SPINE WO CON, 05/31/2019, 16:21. FINDINGS: Image quality: This examination is somewhat limited by quantum mottle artifact. Bones: No fractures or dislocations. Visualized superior ribs are intact. Postoperative changes are seen, with anterior fusion plate seen at C6-C7. This fusion plate appears well seated. The screws are unremarkable, without findings of loosening. Prior screw tracks can be seen anteriorly at C4 and C5. Disc spacers are seen at C4-C5, C5-C6, and C6-C7. Partially bridging anterior osteophytes are seen at C2-C3 and at C3-C4. Focal degenerative change can also be seen involving the C1-C2 interface anteriorly. There is overall straightening of the normal cervical lordosis. Degenerative changes are seen throughout, with multiple levels of moderate to severe neural foraminal narrowing. Soft tissues: Prevertebral soft tissues are normal in thickness. No paravertebral hematomas. No apical pneumothoraces. IMPRESSION: Unremarkable postoperative hardware, with an anterior fixation plate seen at C6-C7. Underlying degenerative changes are seen. Multiple levels of cervical spine degenerative change are seen, which are better displayed on the recent prior MRI examination. Dictated by: Salvatore Ware M.D. on 02/15/2020 at 11:52 Approved by: Salvatore Ware M.D. on 02/15/2020 at 11:55
== END ==
PROVIDERS: PCP Family Medicine; Referring Provider Neurological Surgery; Visit Provider Neurological Surgery
DX: M54.2 Cervicalgia (principal); M47.812 Spondylosis without myelopathy or radiculopathy, cervical region; M79.603 Pain in arm, unspecified; G89.18 Other acute postprocedural pain; Z98.1 Arthrodesis status
CPT/HCPCS: 72125

== ENCOUNTER → 2020-06-20 13:19 | Outpatient (CLI) | payer OTHER, SELFPAY ==
[2020-06-20 13:43] LABS: COVID19 -Nasal RAPID Negative (Negative)
== END ==
PROVIDERS: Visit Provider Physician Assistant
DX: Z01.812 Encounter for preprocedural laboratory examination (principal); Z20.822 Contact with and (suspected) exposure to COVID-19
CPT/HCPCS: 87635; C9803

== ENCOUNTER 2020-06-22 13:20 | Day surgery (SDC) | payer OTHER, SELFPAY ==
--- NOTE | 2020-06-22 | PATH_ITS ---
[facility] Accession Number: [id number] . 01 Material submitted: . sigmoid colon - SIGMOID COLON POLYP . 02 Diagnosis: Sigmoid Colon, Polyp, Biopsy: Hyperplastic polyp. MRV 06/27/2020 1406 Local . 02 Electronically signed: . Paola Ball MD, Pathologist NPI- [id number] . 01 Gross description: . SIGMOID COLON POLYP: Received in formalin is 1 fragment(s) of joyce, soft tissue measuring 0.3 x 0.3 x 0.3 cm submitted entirely in 1 cassette(s) /RC 06/25/2020 1730 Local . 02 Pathologist provided ICD-10: K63.5 . 02 CPT . 233462 Performed at: 01 [facility] [address] [id number] MD Alex Iraheta MD Phone: [phone] Performed at: 02 [facility] [address] [place], [place] [id number] MD Paola Ball MD Phone: [phone]
--- NOTE | 2020-06-22 12:21 | PM.HP.1 ---
History of Present Illness History of Present Illness Date Patient Seen: 06/22/20 Chief complaint: SDC Narrative: 50 Years Old Male seen today for consideration of a screening colonoscopy. There have been no lower GI symptoms suggesting disease such as change in bowel habits, bleeding, abdominal pain or anemia. There's been no family history of colon cancer or colon polyps. Overall health issues have been stable, including no major cardiac events for at least 6 weeks. Past Medical History: Peptic ulcer disease Anemia Prediabetes INSOMNIA MEMORY/COGNITIVE CHANGES HYPERLIPIDEMIA NEUROPATHY, NON-DIABETIC DISC DISEASE, DEGENERATIVE DISC, LUMBAR SACROILIITIS SCIATICA, LEFT HTN DEPRESSION, MAJOR, SINGLE EPISODE, MODERATE History of cervical discectomy NECK AND BACK PAIN DEGENERATIVE DISC DISEASE, CERVICAL SPINE, W/RADICULOPATHY OBSTRUCTIVE SLEEP APNEA, resolved ABDOMINAL PAIN PEPTIC ULCER DISEASE, resolved SINUSITIS GOUT Past Surgical History: Sinus surgery (02/18/11) C-spine surgery times , 2016 Lumbar back surgery Family History: Reviewed history from 04/08/2014 and no changes required: Father: Asthma Mother: Hypertension Social History: 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 Patient History Medical History (Updated 06/14/20 @ 07:24 by [employer]) Cervical radiculopathy at C8 Cervical stenosis of spinal canal Meningitis Sinusitis Surgical History Hx of neck surgery S/P cervical spinal fusion Family & Social History Tobacco & Substance use: Smoking Status Never smoker alcohol intake current Meds Home Medications and Allergies Home Medications Medication Instructions Recorded Confirmed Type Budesonide Sinus 6 mg IRRIGATION DIRECTED 05/09/19 06/22/20 History allopurinol 100 mg PO BID 05/09/19 06/22/20 History colchicine 0.6 mg PO BID 05/09/19 06/22/20 History lisinopril 10 mg PO DAILY 05/09/19 06/22/20 History duloxetine 60 mg capsule,delayed 60 mg PO QAM #60 cap 03/26/20 06/22/20 Rx release gabapentin 600 mg tablet See Rx Instructions .ROUTE 06/11/20 06/22/20 Rx .COMPLEX #90 tab Allergies Allergy/AdvReac Type Severity Reaction Status Date / Time codeine [CODEINE] Allergy Unknown ITCH-UNKNOWN Verified 06/22/20 13:53 SEVERITY PER PT zolpidem [ZOLPIDEM] AdvReac Severe I FREAKED Verified 06/22/20 13:53 OUT Review of Systems Review of Systems ROS: Yes All systems reviewed with the patient and are negative except as otherwise documented Exam Narrative Exam Narrative: General: well developed, well nourished, in no acute distress, Head: normocephalic and atraumatic, Lungs: normal respiratory effort, clear bilaterally to auscultation, no wheezes rales or rhonchi. Heart: normal rate and regular rhythm, no murmurs, rubs, gallops, or clicks, Abdomen: abdomen soft and non-tender without masses, organomegaly, or abdominal wall hernias, bowel sounds positive. Skin: intact without suspicious lesions or rashes, Psych: alert and cooperative; normal mood and affect; normal attention span and concentration; cognition, remote and recent memory appear to be intact, Assessment & Plan Assessment & Plan narrative: 1. Screening for colon cancer Plan for colonoscopy. The nature and character of the procedure as well as anticipated results were discussed. The possibility of not completing the procedure was also discussed. Possible complications including aspiration pneumonia, bleeding, perforation and reaction to medications either for sedation or preparation and missed lesions were discussed. Questions were answered and proceeding to the colonoscopy was elected. Informed consent signed. I sincerely appreciate the referral allowing me to participate in this patient's care. Please contact me with any questions or concerns.
--- NOTE | 2020-06-22 12:22 | PM.OP.ENDO ---
Operative Date/Time/Diagnoses Date of procedure: 06/22/20 Procedure Notes SCOAP/Timeout: 15:09 Procedure in detail: ENDOSCOPIST: Zenobia Escamilla MD Sedation RN: Mary Crook RN Sedation start time: 3:10 p.m. Sedation end time: 3:33 p.m. PROCEDURE: Colonoscopy with biopsy INDICATIONS: 1. Screening for colon cancer MEDICATION: Levsin 0.125 mg sublingual, incremental doses of Versed and fentanyl until appropriate level sedation achieved. ASA CLASS: 2 CECAL WITHDRAWAL TIME: 8 minutes COMPLICATIONS: None. EXTENT OF PROCEDURE: Cecum. QUALITY OF PREP: Good with portions of liquid stool. PROCEDURE: Prior to insertion of the colonoscope, a digital rectal examination was accomplished with circumferential palpation of the distal rectal mucosa without significant findings being noted. The high-definition colonoscope was passed into the rectum in the usual fashion and advanced over to the cecum without difficulty. The ileocecal valve, appendiceal stoma, and medial wall all could be inspected and no abnormalities were seen. ASCENDING COLON: As the colonoscope was withdrawn, care was taken to expose and inspect the haustral folds and no abnormalities were seen. HEPATIC FLEXURE: Normal, no polyps, diverticula or other abnormalities. TRANSVERSE COLON: Normal, no polyps, diverticula or other abnormalities. DESCENDING COLON: Normal, no polyps, diverticula or other abnormalities. SIGMOID COLON: 2 mm polyp removed with cold biopsy forceps, otherwise, normal, no diverticula or other abnormalities. RECTUM: Normal. J maneuver was produced. There was no significant perianal disease. The J maneuver was broken. The remainder of the rectum was inspected and there was no external hemorrhoid disease. The scope was withdrawn. IMPRESSION: 1. Sigmoid polyp x1, 2 mm, removed with cold biopsy forceps PLAN: 1. Follow-up in clinic status post pathology results. The possibility of a missed lesion including a malignancy has been discussed with the patient previously. Potential alarm symptoms have been discussed and should be reported immediately.
[2020-06-22] MEDS: HYOSCYAMINE 0.125 MG TABLET PO (13:34)
[2020-06-22] MEDS: LACTATED RINGERS 1,000 ML 200 ML IV (13:34)
[2020-06-22 13:44] VITALS: BP 165/99; PULSE 85; RESP 18; TEMP 36.1; O2SAT 98; BMI 36.6
[2020-06-22] MEDS: MIDAZOLAM 5 MG/5 ML VIAL IV (15:14)
[2020-06-22] MEDS: fentaNYL 250 MCG/5 ML INJ IV (15:22)
[2020-06-22 15:38] VITALS: BP 161/74; PULSE 75; RESP 12; TEMP 36.6; O2SAT 96
--- NOTE | 2020-06-22 15:41 | SUR.PHASEI ---
Dr. Escamilla spoke with pt at bedside in PACU.
[2020-06-22 15:42] VITALS: BP 153/92; PULSE 86; RESP 13; O2SAT 97
[2020-06-22 15:49] VITALS: BP 160/101; PULSE 82; RESP 13; TEMP 36.7; O2SAT 96
--- NOTE | 2020-06-22 15:51 | SUR.PHASEI ---
Stable PACU stay.
[2020-06-22 15:52] VITALS: BP 167/108; PULSE 93; RESP 14; TEMP 37.2; O2SAT 97
[2020-06-22 16:04] VITALS: BP 141/90; PULSE 68; RESP 14; O2SAT 97
--- NOTE | 2020-06-22 16:11 | SUR.PHASEII ---
pt denies any complaints. Denies pain and is ready to go.
== END 2020-06-22 16:20 | disposition home or self-care (01) ==
PROVIDERS: PCP Family Medicine; Referring Provider Student in an Organized Health Care Education/Training Program; Visit Provider Student in an Organized Health Care Education/Training Program
PROC: 0DJD8ZZ Inspection of Lower Intestinal Tract, Via Natural or Artificial Opening Endoscopic (ICD-10-PCS; CPT 45378; principal; 2020-06-22 14:30)
DX: Z12.11 Encounter for screening for malignant neoplasm of colon (principal); I10 Essential (primary) hypertension; K63.5 Polyp of colon
CPT/HCPCS: 45380; J2250; J3010

== ENCOUNTER → 2020-08-09 15:51 | Outpatient (CLI) | payer OTHER, SELFPAY ==
[2020-08-09] MEDS: COVID-19 VACC #1, MRNA(MOD) 100 MCG/0.5 ML VIAL IM (16:02)
== END ==
PROVIDERS: PCP Family Medicine; Visit Provider Internal Medicine
DX: Z23 Encounter for immunization (principal)
CPT/HCPCS: 0011A; 91301

== ENCOUNTER → 2020-09-12 11:57 | Outpatient (CLI) | payer OTHER, SELFPAY ==
[2020-09-12] MEDS: COVID-19 VACC #2, MRNA(MOD) 100 MCG/0.5 ML VIAL IM (12:07)
== END ==
PROVIDERS: PCP Family Medicine; Visit Provider Internal Medicine
DX: Z23 Encounter for immunization (principal)
CPT/HCPCS: 0012A; 91301

== ENCOUNTER → 2023-04-07 15:02 | Outpatient (CLI) | payer OTHER, SELFPAY ==
--- NOTE | 2023-04-07 | DI.RAD.S_ITS ---
PROCEDURE: XR SHOULDER RT MIN 2V INDICATIONS: right shoulder pain TECHNIQUE: 3 views of the shoulder were acquired. COMPARISON: None. FINDINGS: Bones: No acute fractures or dislocations. No suspicious bony lesions. Visualized ribs appear intact. There is moderate AC joint degenerative change. There appears to be old posttraumatic changes involving the midshaft of the clavicle. Soft tissues: No suspicious soft tissue calcifications. IMPRESSION: 1. Noted evidence for acute osseous abnormality involving the right shoulder. 2. Moderate AC joint degenerative change. 3. Old posttraumatic changes midshaft right clavicle. Dictated by: Mitul Nelson M.D. on 04/07/2023 at 16:17 Approved by: Mitul Nelson M.D. on 04/07/2023 at 16:20
== END ==
PROVIDERS: PCP Family Medicine; Referring Provider Family Medicine; Visit Provider Family Medicine
DX: M25.511 Pain in right shoulder (principal)
CPT/HCPCS: 73030

== ENCOUNTER → 2023-04-14 08:08 | Outpatient (CLI) | payer OTHER, SELFPAY ==
--- NOTE | 2023-04-14 | DI.US.S_ITS ---
PROCEDURE: US EXTREMELY NONVASC UPPER RT INDICATIONS: LUMP ON RIGHT ARM TECHNIQUE: Real-time scanning was performed of the right shoulder , with image documentation. COMPARISON: None. FINDINGS: There is an anterior ill-defined hyperechoic 0.9 x 0.3 x 1.0 cm mass within the subcutaneous tissue which corresponds as palpated. There is also a posterior hyperechoic ill-defined 1.5 x 0.5 x 1.6 cm mass which corresponds as palpated. IMPRESSION: Sonographic findings most consistent with lipomas which corresponds as palpated. Please note, in the setting of rapid interval growth, the very rare liposarcoma cannot be differentiated from a lipoma by ultrasound alone. Dictated by: Delaney Roy M.D. on 04/14/2023 at 13:33 Approved by: Delaney Roy M.D. on 04/14/2023 at 13:35
== END ==
PROVIDERS: PCP Family Medicine; Referring Provider Family Medicine; Visit Provider Family Medicine
DX: R22.31 Localized swelling, mass and lump, right upper limb (principal)
CPT/HCPCS: 76882

== ENCOUNTER → 2023-04-24 06:56 | Outpatient (CLI) | payer OTHER, SELFPAY ==
--- NOTE | 2023-04-24 | DI.MRI.S_ITS ---
PROCEDURE: MR SHOULDER RT WO CON INDICATIONS: CHRONIC RIGHT SHOULDER PAIN TECHNIQUE: Noncontrast oblique coronal T2 fast spin echo with fat saturation, oblique sagittal T1 spin echo and T2 fast spin echo with fat saturation, axial T1 spin echo and T2 fast spin echo with fat saturation through the shoulder. COMPARISON: [facility], CR, XR SHOULDER RT MIN 2V, 04/07/2023, 15:03. FINDINGS: Image quality: Images are mildly degraded by patient motion on multiple pulse sequences. Diagnostic information is obtained. Rotator cuff: There is at least high-grade and likely full-thickness tearing of the supraspinatus tendon and anterior infraspinatus tendon at the distal insertions measuring approximately 1.6 cm in anterior-posterior dimension. There is no significant proximal tendon retraction. Findings are superimposed on moderate tendinosis. Teres minor tendon is intact. There is moderate subscapularis tendinosis and low-grade partial intrasubstance tearing at the distal insertion. The rotator cuff musculature is normal in bulk. Bones and bursae: No acute trabecular bone injury or fracture. Chronic traction cystic changes are seen at the posterosuperior humeral head and the greater and lesser tuberosities near the rotator cuff tendon insertions. Mild partial-thickness cartilage irregularity in the glenohumeral joint. Moderate degenerative changes are seen at the acromioclavicular joint with subchondral cystic changes and marginal osteophyte formation. A small amount of fluid is seen in the subacromial/subdeltoid bursa, which likely communicates with the glenohumeral joint space. Small glenohumeral effusion. Capsule and soft tissues: There is nondisplaced tearing of the superior labrum extending to the anterosuperior and posterosuperior labrum. The proximal biceps long head tendon demonstrates moderate tendinosis. There is partial effacement of the normal fat signal in the rotator interval. Glenohumeral ligaments appear to be intact. IMPRESSION: 1. Likely full-thickness tearing of the supraspinatus tendon and the anterior fibers of the infraspinatus tendon at their distal insertions measuring approximately 1.6 cm in anterior-posterior dimension without significant tendon retraction. 2. Moderate subscapularis tendinosis with focal low-grade partial intrasubstance tearing at the distal insertion. 3. Moderate proximal biceps long head tendinosis. 4. Nondisplaced tearing of the superior labrum extending into the anterosuperior and posterosuperior labrum. Grade 2 glenohumeral chondromalacia. 5. Moderate acromioclavicular joint osteoarthrosis. 6. Small subacromial/subdeltoid bursal effusion likely communicates with a small glenohumeral joint effusion. Approved by: Josesito Mccabe M.D. on 04/24/2023 at 10:31
== END ==
PROVIDERS: PCP Family Medicine; Referring Provider Family Medicine; Visit Provider Family Medicine
DX: M19.011 Primary osteoarthritis, right shoulder (principal); M25.411 Effusion, right shoulder; M75.111 Incomplete rotator cuff tear or rupture of right shoulder, not specified as traumatic; S43.431A Superior glenoid labrum lesion of right shoulder, initial encounter; M25.511 Pain in right shoulder; G89.29 Other chronic pain
CPT/HCPCS: 73221

== ENCOUNTER → 2023-07-07 11:26 | Outpatient (CLI) | payer OTHER, SELFPAY ==
--- NOTE | 2023-07-07 | DI.RAD.S_ITS ---
PROCEDURE: XR ELBOW RT 2V INDICATIONS: right elbow pain TECHNIQUE: 2 views of the elbow were acquired. COMPARISON: None. FINDINGS: Bones: No fractures or dislocations. No suspicious bony lesions. Soft tissues: Mild dorsal soft tissue swelling over the olecranon is seen. No elbow joint effusion. No suspicious soft tissue calcifications. IMPRESSION: No acute elbow fracture or dislocation. No significant joint effusion. Dorsal elbow soft tissue swelling, no bony erosive changes. Olecranon bursitis cannot be excluded. Dictated by: Tj Delong M.D. on 07/07/2023 at 14:17 Approved by: Tj Delong M.D. on 07/07/2023 at 14:18
== END ==
LOC: RAD 11:27
PROVIDERS: PCP Family Medicine; Referring Provider Family Medicine; Visit Provider Family Medicine
DX: M25.521 Pain in right elbow (principal)
CPT/HCPCS: 73070

== ENCOUNTER 2023-07-11 07:38 | Emergency (ER) | payer OTHER, SELFPAY ==
[2023-07-11 07:47] VITALS: BP 155/95; PULSE 72; RESP 18; TEMP 36.7; O2SAT 99; BMI 32.5
--- NOTE | 2023-07-11 07:52 | ED.EXTPRO ---
HPI - Extremity Problem General Chief complaint: Extremity Problem,Nontraumatic Stated complaint: TORN R/ SHOULDER MUSCLE/ PAIN Time Seen by Provider: 07/11/23 07:52 Source: patient Mode of arrival: Ambulatory History of Present Illness HPI Narrative: 53yo M presents with shoulder pain. He has history of traumatic injury to right shoulder and is receiving treatment in [place] for this. 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 He has had shoulder pain worsening since last night. He is working up to stem cell transplant, with a plan for operation in [place] today. He is trying Vicodin and Percocet at home, but it is not sufficient to control his pain. He denies fevers, chills, abrupt swelling, rash, focal numbness or weakness that is new. No new trauma. Spouse is driving. He is here solely for pain control to help him get to his facility in [place] today for further procedure. He has history of gout, cervical spine stenosis and disc herniation as well. This does not feel like gout. No chest pain, shortness of breath, bleeding, pus, lightheadedness or passing out, sedation, or any other new symptoms. Related Data Home Medications Medication Instructions Recorded Confirmed Budesonide Sinus 6 mg irrigation DIRECTED 05/09/19 06/22/20 allopurinol 100 mg tablet 100 mg PO BID 05/09/19 06/22/20 colchicine 0.6 mg tablet 0.6 mg PO BID 05/09/19 06/22/20 lisinopril 10 mg tablet 10 mg PO DAILY 05/09/19 06/22/20 Previous Rx's Medication Instructions Recorded gabapentin 600 mg tablet See Rx Instructions .Route 10/22/20 .COMPLEX #90 tabs duloxetine 60 mg capsule,delayed 60 mg PO QAM #60 caps 05/21/21 release Allergies Allergy/AdvReac Type Severity Reaction Status Date / Time codeine [CODEINE] Allergy Unknown ITCH-UNKNOWN Verified 07/11/23 07:52 SEVERITY PER PT zolpidem [ZOLPIDEM] AdvReac Severe I FREAKED Verified 07/11/23 07:52 OUT Review of Systems Review of Systems Narrative: Constitutional: no fever, no chills Eyes: no visual disturbance, no discharge Ears, Nose, Mouth, Throat: no rhinorrhea, no sore throat Cardiovascular: no chest pain, no palpitations Respiratory: no cough, no shortness of breath Gastrointestinal: no abdominal pain, no vomiting, no diarrhea Genitourinary: no dysuria, no hematuria Musculoskeletal: no back pain, no neck stiffness Skin: no rash, no wound Neurological: no focal weakness, no focal numbness Patient History Medical History (Updated 07/11/23 @ 08:19 by Ambrocio Mcgrath MD) Cervical radiculopathy at C8 Cervical stenosis of spinal canal Sinusitis Meningitis Surgical History S/P cervical spinal fusion Hx of neck surgery Social History (Updated 12/19/19 @ 15:04 by Cheyenne Emery LPN) marital status: number of children: 1 household members: spouse Smoking Status: Former smoker alcohol intake: current Smoking Status: Former smoker alcohol intake frequency: a few times a month Substance Use Type: marijuana Exam Narrative Exam Narrative: Const: Appears uncomfortable from shoulder pain, non toxic appearing; remains calm, conversant, pleasant Eyes: PERRLA, EOMI ENT: mucous membranes moist Neck: supple, non-tender Resp: no respiratory distress, clear to auscultation bilaterally Card: regular rate and rhythm, no murmurs Abd: non tender diffusely, no rigidity or rebound or guarding Back: no T or L spine tenderness, no CVA tenderness bilaterally Extrem: no deformities, no swelling bilateral lower extremities; right shoulder with primarily anterior swelling and tenderness, without acute erythema; axillary, median, radial, ulnar nerves strength and sensation fully intact; 2+ distal pulses, soft compartments present, no bleeding or pus 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 He is afebrile, well perfused, neurovascularly intact and appears to be here primarily for pain control. In this setting, in discussion with patient, we are choosing together not to pursue x-ray or labs but rather focus on pain control with plan for patient to be driven straight to his surgeon's office this morning immediately after suitable pain control. I am giving 1 mg IM Dilaudid and will closely reassess. Patient and spouse agree with plan. Patient feeling very comfortable now. He appears stable, not excessively sedated. Spouse will drive him directly to surgeon's office for further assessment. Discharging in stable condition. Repeat exam and vital signs reassuring. Questions answered. Plan reviewed. Patient discharged in stable condition. Orders Ordered: Discontinued Medications Hydromorphone HCl (Hydromorphone 1 Mg Inj) 1 mg IM NOW ONE Stop: 07/11/23 08:00 Last Admin: 07/11/23 08:03 Dose: 1 mg Vital Signs Vital signs: Vital Signs - 8 hr 07/11/23 07:47 Temperature 98.1 F Pulse Rate 72 Respiratory Rate 18 Blood Pressure 155/95 H Pulse Oximetry 99 Oxygen Delivery Method Room Air Discharge Plan Departure Patient Disposition: Released, Other Clinical Impression: Acute shoulder pain Activity Restrictions/Additional Instructions: It was a pleasure taking care of you today. It is important to fully read and understand the below. Please ask us if you have any questions. We help treat you for your shoulder pain this morning. Do not drive or take any other sedating medications prior to being reassessed, as you received narcotics here. Have your spouse drive you DIRECTLY to your appointment today. No tests or assessments are perfect, and your condition could pattern changer time. If your symptoms change or worsen, it is very important you immediately seek medical care. If you have any new or worsening pain, swelling, redness, rash, fever, numbness, weakness, bleeding, difficulty using your body, or anything else that concerns you, please immediately seek medical care. If you have been prescribed any medications: please read the drug package inserts on how to properly use the medication and any potential side effects. If you had labs (blood tests) or imaging (CT scan or x-rays) done during your visit: please follow up on the results of these with your primary care doctor, as discussed. In addition, please know the results we received today may be preliminary. Our usual practice is to follow up on tests within a few days of a patient's discharge from the Emergency Department and notify you of any changes. These may lead to changes to your treatment plan. However, the best way to obtain and interpret these test results is through your Primary Care Provider. If you need to update your contact information, please stop by the front office specialist and alert the Registration personnel before you leave the Emergency Department. Thank you for the opportunity to participate in your healthcare. We are always here and happy to see you in the future. Prescriptions: No Action gabapentin 600 mg tablet See Rx Instructions .ROUTE .COMPLEX Qty: 90 3RF Dose Instruction: take 1 to 2 tablets by mouth three times a day TO BEGIN AT BEDTIME ANDTITRATE TO NERVE PAIN RELIEF Rx Instructions: take 1 to 2 tablets by mouth three times a day TO BEGIN AT BEDTIME ANDTITRATE TO NERVE PAIN RELIEF duloxetine 60 mg capsule,delayed release(DR/EC) 60 mg PO QAM Qty: 60 3RF allopurinol 100 mg tablet 100 mg PO BID lisinopril 10 mg tablet 10 mg PO DAILY Patient Comments: take 1 tablet by mouth once daily for blood pressure colchicine 0.6 mg tablet 0.6 mg PO BID Patient Comments: take 1 tablet by mouth twice a day Budesonide Sinus 6 mg 6 mg irrigation DIRECTED Referrals: Pete Post MD [Primary Care Provider] -
[2023-07-11] MEDS: HYDROMORPHONE 1 MG INJ IM (08:03)
== END 2023-07-11 08:24 | disposition home or self-care (01) ==
PROVIDERS: Emergency Provider Emergency Medicine; PCP Family Medicine
DX: M25.511 Pain in right shoulder (principal)
CPT/HCPCS: 96372; 99283; J1170

== ENCOUNTER 2023-07-15 00:20 | Emergency (ER) | payer OTHER, SELFPAY ==
[2023-07-15 00:30] VITALS: BP 117/98; PULSE 88; RESP 18; TEMP 36; O2SAT 100; BMI 31.1
--- NOTE | 2023-07-15 00:39 | DI.RAD.S_ITS ---
PROCEDURE: XR ELBOW RT MIN 3V INDICATIONS: increased swelling TECHNIQUE: 3 views of the elbow were acquired. COMPARISON: None. FINDINGS: Bones: No fractures or dislocations. No suspicious bony lesions. Soft tissues: Dorsal elbow soft tissue swelling is seen, olecranon bursitis cannot be excluded. No elbow joint effusion. No suspicious soft tissue calcifications. IMPRESSION: No elbow fracture or dislocation. No significant elbow joint effusion. Soft tissue swelling over dorsal aspect or olecranon concerning for bursitis. Dictated by: Tj Delong M.D. on 07/15/2023 at 0:57 Approved by: Tj Delong M.D. on 07/15/2023 at 0:58
[2023-07-15 02:16] VITALS: BP 151/97; PULSE 72; RESP 18; O2SAT 100
[2023-07-15 02:17] VITALS: BP 151/97; PULSE 69; O2SAT 99
[2023-07-15 02:30] VITALS: BP 148/83; PULSE 70; O2SAT 99
[2023-07-15 03:00] VITALS: PULSE 79; O2SAT 99
[2023-07-15 03:01] VITALS: BP 128/97; PULSE 79; RESP 18; O2SAT 99
--- NOTE | 2023-07-15 03:06 | ED_ITS ---
HPI - Extremity Problem General Chief complaint: Extremity Problem,Nontraumatic Stated complaint: torn shoulder muscle, ruptured burrsa rt elbow Time Seen by Provider: 07/15/23 03:06 Source: patient and family Mode of arrival: Ambulatory History of Present Illness HPI Narrative: Patient currently undergoing stem cell infusion/PRP treatment for right shoulder rotator cuff tear and right elbow tenderness presumably from bursal rupture. P resenting today complaining that the oxycodone that he is taken for pain is not improving symptoms and looking for assistance with pain control. He has been in contact with his orthopedist in [place]. At this point he has been unable to sleep it has been a number of days, he can not find a comfortable position even with the use of oxycodone. He was in a couple of days ago and given an IM dose of Dilaudid was able to sleep for almost 24 hours. He has his last stem cell injection later this week and is requesting another dose of IM Dilaudid to get him through the procedure. He describes no fevers, cough, chills. Related Data Home Medications Medication Instructions Recorded Confirmed Budesonide Sinus 6 mg irrigation DIRECTED 05/09/19 06/22/20 allopurinol 100 mg tablet 100 mg PO BID 05/09/19 06/22/20 colchicine 0.6 mg tablet 0.6 mg PO BID 05/09/19 06/22/20 lisinopril 10 mg tablet 10 mg PO DAILY 05/09/19 06/22/20 Previous Rx's Medication Instructions Recorded gabapentin 600 mg tablet See Rx Instructions .Route 10/22/20 .COMPLEX #90 tabs duloxetine 60 mg capsule,delayed 60 mg PO QAM #60 caps 05/21/21 release Allergies Allergy/AdvReac Type Severity Reaction Status Date / Time codeine [CODEINE] Allergy Unknown ITCH-UNKNOWN Verified 07/11/23 07:52 SEVERITY PER PT zolpidem [ZOLPIDEM] AdvReac Severe I FREAKED Verified 07/11/23 07:52 OUT Review of Systems Review of Systems Narrative: Pertinent positive and negative findings as per HPI Patient History Medical History (Updated 07/15/23 @ 03:25 by Tamika Parks MD) Injury of right rotator cuff Cervical radiculopathy at C8 Cervical stenosis of spinal canal Sinusitis Meningitis Surgical History S/P cervical spinal fusion Hx of neck surgery Social History marital status: number of children: 1 household members: spouse Smoking Status: Former smoker alcohol intake: current Smoking Status: Former smoker alcohol intake frequency: a few times a month Substance Use Type: marijuana Exam Initial Vital Signs Initial Vital Signs: Vital Signs Temperature 96.8 F L 07/15/23 00:30 Pulse Rate 88 07/15/23 00:30 Respiratory Rate 18 07/15/23 00:30 Blood Pressure 117/98 H 07/15/23 00:30 Pulse Oximetry 100 07/15/23 00:30 Oxygen Delivery Method Room Air 07/15/23 00:30 General: Alert, in obvious pain, significantly sleep deprived Respiratory: Able to speak in full sentences, no obvious respiratory distress Skin: No obvious rashes, warm and dry Neurologic: Grossly intact no obvious asymmetries or abnormalities Psych: appropriate insight and affect, cooperative Extremity: There was no warmth redness or swelling to the elbow or the shoulder suggesting septic joint. The pain that he describes is chronic and unchanged and the reason he is undergoing current stem cell and PRP treatments Course Orders Ordered: ED Orders 07/15/23 00:39 XR elbow RT min 3V Stat Vital Signs Vital signs: Vital Signs - 8 hr 07/15/23 00:30 07/15/23 02:16 Temperature 96.8 F L Pulse Rate 88 72 Respiratory Rate 18 18 Blood Pressure 117/98 H 151/97 H Pulse Oximetry 100 100 Oxygen Delivery Method Room Air MDM - Extremity (Nontraumatic) MDM Narrative Medical decision making narrative: 53-year-old gentleman currently undergoing stem cell and PRP treatment for rotator cuff tear and bursal injury both on the right side. He has seeing an orthopedic doctor in [place]. He is his last procedure coming up the next couple of days. He does have oxycodone available at home but finds that the pain is intolerable to the point that he is unable to find any comfortable position, he has not been able to sleep in a number of days. He had success and sleeping almost 24 hours after a single dose of IM Dilaudid and returns to the ER today requesting help with pain control to keep him through current procedure. There was no evidence of infection or septic arthritis. He does have oxycodone available to him at home. He has given a dose of IM Dilaudid. His is driving so discharge home is safe. Recommended that rather than 1 oxycodone every 4 hours that he take 2 oxycodone every 6 hours to make sure that he is actually getting adequate pain control rather than staying just under the pain control level. Also discussed stool softeners to make sure that constipation does not become an issue. He has follow up available with his orthopedic surgeon in the next 48 hours. He is safe for discharge Discharge Plan Departure Patient Disposition: Home Clinical Impression: Intractable pain Activity Restrictions/Additional Instructions: I am sorry that you are suffering so much with this shoulder issue You are given a dose of IM Dilaudid in the emergency department today. Hopefully this will help you get some sleep so that you can begin to heal With your oxycodone I would recommend 2 pills every 6 hours rather than 1 pill every 4 hours. I think that you will find the higher dose actually gets 2 pain control which gives you longer periods of pain relief. Make sure that you are using stool softener daily as narcotics will cause constipation which makes michael rything worse. I wish you luck with the rest of your procedures and follow up with your orthopedic surgeon Prescriptions: No Action gabapentin 600 mg tablet See Rx Instructions .ROUTE .COMPLEX Qty: 90 3RF Dose Instruction: take 1 to 2 tablets by mouth three times a day TO BEGIN AT BEDTIME ANDTITRATE TO NERVE PAIN RELIEF Rx Instructions: take 1 to 2 tablets by mouth three times a day TO BEGIN AT BEDTIME ANDTITRATE TO NERVE PAIN RELIEF duloxetine 60 mg capsule,delayed release(DR/EC) 60 mg PO QAM Qty: 60 3RF allopurinol 100 mg tablet 100 mg PO BID lisinopril 10 mg tablet 10 mg PO DAILY Patient Comments: take 1 tablet by mouth once daily for blood pressure colchicine 0.6 mg tablet 0.6 mg PO BID Patient Comments: take 1 tablet by mouth twice a day Budesonide Sinus 6 mg 6 mg irrigation DIRECTED Referrals: Pete Post MD [Primary Care Provider] - Stand Alone Forms: Patient Portal/API
[2023-07-15] MEDS: HYDROMORPHONE 1 MG INJ IM (03:31)
== END 2023-07-15 03:38 | disposition home or self-care (01) ==
PROVIDERS: Emergency Provider Emergency Medicine; PCP Family Medicine
DX: M25.511 Pain in right shoulder (principal)
CPT/HCPCS: 73080; 96372; 99283; J1170

== ENCOUNTER → 2023-07-24 07:12 | Outpatient (CLI) | payer OTHER, SELFPAY ==
--- NOTE | 2023-07-24 07:13 | DI.MRI.S_ITS ---
PROCEDURE: MR ELBOW RT WO CON INDICATIONS: Pain in right elbow TECHNIQUE: Noncontrast coronal proton density fast spin echo and T2 fast spin echo with fat saturation, axial and sagittal T1 spin echo and T2 fast spin echo with fat saturation through the elbow. COMPARISON: None. FINDINGS: Image quality: Excellent. Lateral structures: The lateral ulnar collateral ligament and radial collateral ligament both appear thickened with intrasubstance T2 hyperintense signal. The overlying common extensor tendon also appears thickened with intrasubstance T2 hyperintense signal at its lateral epicondylar insertion. Medial structures: The ulnar collateral ligament appears intact. The overlying common flexor tendon appears normal. The ulnar nerve appears normal in size and signal within the cubital tunnel. Anterior structures: The biceps and brachialis tendons both appear intact as they insert onto the proximal radius and ulna, respectively. No bicipitoradial bursal fluid. The median and radial neurovascular bundles appear normal; no focal muscle atrophy to suggest nerve impingement. Posterior structures: The conjoint triceps tendon from the long and lateral heads appears intact. The medial head of the triceps tendon also appears normal, with direct muscle insertion onto the olecranon. There is moderate amount of fluid distending olecranon bursa. Bone and cartilage: No bone marrow contusions or fractures. No osteochondral injuries. IMPRESSION: 1. Moderate amount of fluid distending olecranon bursa suggestive of bursitis. Distal triceps tendon is intact. 2. Sprain/low-grade intrasubstance partial-thickness tear involving lateral collateral ligaments. Tendinosis involving overlying common extensor tendon origin at lateral epicondyle. Finding is suggestive of low to moderate grade lateral epicondylitis. 3. No marrow edema. No fracture or dislocation. No suspicious bony lesions or gross osteochondral injuries. Dictated by: Tj Delong M.D. on 07/24/2023 at 12:03 Approved by: Tj Delong M.D. on 07/24/2023 at 12:05
== END ==
PROVIDERS: PCP Family Medicine; Referring Provider Family Medicine; Visit Provider Family Medicine
DX: S53.431A Radial collateral ligament sprain of right elbow, initial encounter (principal); S53.441A Ulnar collateral ligament sprain of right elbow, initial encounter; M25.521 Pain in right elbow
CPT/HCPCS: 73221

== ENCOUNTER 2023-09-18 12:10 | Emergency (ER) | payer OTHER, SELFPAY ==
[2023-09-18 12:19] VITALS: BP 182/93; PULSE 79; RESP 32; TEMP 36.9; O2SAT 98; BMI 30.5
--- NOTE | 2023-09-18 12:28 | ED.FALL ---
HPI - Fall General Chief Complaint: Fall Stated Complaint: fall, per pt nerve damage/pain, R side pain Time Seen by Provider: 09/18/23 12:15 Mode of arrival: Wheelchair History of Present Illness HPI Narrative: 53-year-old male with history of neuropathic pain presents for muscle cramping, the sensation that is nerves are on fire. Patient states that he had a trip and fall onto his left knee and right elbow, which he states flared up his nerve pain. He states that he is in the process of being evaluated by several specialists for his pain, but the official diagnosis is yet undetermined. Patient states that he has been seen in the past for this pain and Dilaudid usually helps. He was unable to take steroids or anti-inflammatories currently due to PRP treatment in his right shoulder. Related Data Home Medications Medication Instructions Recorded Confirmed Budesonide Sinus 6 mg irrigation DIRECTED 05/09/19 06/22/20 allopurinol 100 mg tablet 100 mg PO BID 05/09/19 06/22/20 colchicine 0.6 mg tablet 0.6 mg PO BID 05/09/19 06/22/20 lisinopril 10 mg tablet 10 mg PO DAILY 05/09/19 06/22/20 Previous Rx's Medication Instructions Recorded gabapentin 600 mg tablet See Rx Instructions .Route 10/22/20 .COMPLEX #90 tabs duloxetine 60 mg capsule,delayed 60 mg PO QAM #60 caps 05/21/21 release Allergies Allergy/AdvReac Type Severity Reaction Status Date / Time codeine [CODEINE] Allergy Unknown ITCH-UNKNOWN Verified 07/11/23 07:52 SEVERITY PER PT zolpidem [ZOLPIDEM] AdvReac Severe I FREAKED Verified 07/11/23 07:52 OUT Review of Systems Review of Systems Narrative: See HPI Patient History Medical History Injury of right rotator cuff Cervical radiculopathy at C8 Cervical stenosis of spinal canal Sinusitis Meningitis Surgical History S/P cervical spinal fusion Hx of neck surgery Social History marital status: number of children: 1 household members: spouse Smoking Status: Former smoker alcohol intake: current Smoking Status: Former smoker tobacco type: smokeless tobacco alcohol intake frequency: a few times a month Substance Use Type: marijuana Exam Initial Vital Signs Initial Vital Signs: Vital Signs Temperature 98.4 F 09/18/23 12:19 Pulse Rate 79 09/18/23 12:19 Respiratory Rate 32 H 09/18/23 12:19 Blood Pressure 182/93 H 09/18/23 12:19 Pulse Oximetry 98 09/18/23 12:19 Oxygen Delivery Method Room Air 09/18/23 12:19 Const: Awake, alert, uncomfortable, in pain, agitated, clenching all muscles and shaking MSK: Atraumatic, full range of motion, pulses equal Skin: Warm, Dry, intact, no rashes Neuro: AO x3, CN II-XII grossly intact, moves all extremities Course Orders Ordered: Discontinued Medications Diazepam (Diazepam 10 Mg/2 Ml Syringe) 2 mg IV NOW ONE Stop: 09/18/23 12:28 Last Admin: 09/18/23 12:37 Dose: 2 mg Documented By: ES Droperidol (Droperidol 5 Mg/2 Ml Vial) 2.5 mg IV NOW ONE Stop: 09/18/23 12:28 Last Admin: 09/18/23 12:36 Dose: 2.5 mg Documented By: ES Sodium Chloride (Normal Saline 0.9%) 1,000 mls @ 1,000 mls/hr IV BOLUS ONE Stop: 09/18/23 14:24 Last Admin: 09/18/23 13:43 Dose: 1,000 mls/hr Documented By: MO Vital Signs Vital signs: Vital Signs - 8 hr 09/18/23 12:19 09/18/23 14:09 09/18/23 14:09 Temperature 98.4 F Pulse Rate 79 67 Respiratory Rate 32 H Blood Pressure 182/93 H 135/70 Pulse Oximetry 98 100 Oxygen Delivery Method Room Air MDM - Fall Differential Diagnosis Differential diagnosis: Likely fracture of wrist, compression fracture and other Lab Data 09/18/23 12:39 09/18/23 12:39 Labs: Lab Results 09/18/23 Range/Units 12:39 WBC 9.6 (4.5-11.0) X10^3/uL RBC 4.65 (4.5-5.9) X10^6/uL Hgb 13.0 L (13.5-17.5) g/dL Hct 39.1 L (41-53) % MCV 84.1 (80-100) fL MCH 28.0 (26-34) PG MCHC 33.3 (30-36) % RDW 14.3 (11.6-14.8) % Plt Count 246 (150-400) X10^3/uL Neut % (Auto) 64.6 (50-75) % Lymph % (Auto) 20.1 L (25-40) % [place] % (Auto) 11.1 (3-14) % Eos % (Auto) 3.4 (2-4) % Baso % (Auto) 0.8 (0-2) % Neut # (Auto) 6200 (0383-2792) /uL Lymph # (Auto) 1900 (3654-6533) /uL [place] # (Auto) 1100 H (0-900) /uL Eos # (Auto) 300 (0-450) /uL Baso # (Auto) 100 (0-100) /uL Sodium 140 (137-145) mmol/L Potassium 3.8 (3.4-5.1) mmol/L Chloride 108 H (98-107) mmol/L Carbon Dioxide 21 L (22-32) mmol/L BUN 10 (9-20) mg/dL Creatinine 0.94 (0.66-1.25) mg/dL Estimated GFR > 60 (>60) mL/min BUN/Creatinine Ratio 10.6 (6-22) Glucose 92 (70-100) mg/dL Calcium 9.6 (8.4-10.2) mg/dL Total Bilirubin 1.0 (0.2-1.3) mg/dL AST 22 (17-59) IU/L ALT 9 (<50) IU/L Alkaline Phosphatase 85 (38-126) U/L Total Creatine Kinase 159 (55-170) U/L Total Protein 7.4 (6.3-8.2) g/dL Albumin 4.8 (3.5-5.0) g/dL Globulin 2.6 (1.7-4.1) g/dL Albumin/Globulin Ratio 1.8 (1.0-2.8) MDM Narrative Medical decision making narrative: Patient presents for all over nerve pain after a fall. Uncertain etiology of patient's nerve pain, he states that he was still being evaluated by print specialists. Patient is very agitated, clenching his upper and lower extremities, shaking. Stating that Dilaudid has helped his pain in the past. We will order laboratory work and CK, droperidol and Valium ordered for pain. Resolution of symptoms with the given medications. Patient resting comfortably. States he is ready to go home. PCP follow up advised. Discharge Plan Departure Patient Disposition: Home Clinical Impression: Neuropathy Instructions: DI for Peripheral Neuropathy Activity Restrictions/Additional Instructions: Continue to take your medications as previously prescribed. Follow up with your specialists for your nerve pain. Please feel free to return to the emergency department for new or worsening symptoms. Prescriptions: No Action gabapentin 600 mg tablet See Rx Instructions .ROUTE .COMPLEX Qty: 90 3RF Dose Instruction: take 1 to 2 tablets by mouth three times a day TO BEGIN AT BEDTIME ANDTITRATE TO NERVE PAIN RELIEF Rx Instructions: take 1 to 2 tablets by mouth three times a day TO BEGIN AT BEDTIME ANDTITRATE TO NERVE PAIN RELIEF duloxetine 60 mg capsule,delayed release(DR/EC) 60 mg PO QAM Qty: 60 3RF allopurinol 100 mg tablet 100 mg PO BID lisinopril 10 mg tablet 10 mg PO DAILY Patient Comments: take 1 tablet by mouth once daily for blood pressure colchicine 0.6 mg tablet 0.6 mg PO BID Patient Comments: take 1 tablet by mouth twice a day Budesonide Sinus 6 mg 6 mg irrigation DIRECTED Referrals: Pete Post MD [Primary Care Provider] - Stand Alone Forms: Patient Portal/API
[2023-09-18] MEDS: DROPERIDOL 5 MG/2 ML VIAL 2.5 MG IV (12:36)
[2023-09-18] MEDS: diazePAM 10 MG/2 ML SYRINGE 2 MG IV (12:37)
[2023-09-18 12:47] LABS: Add Manual Diff / Slide Review NO; Basophils Absolute Auto 100 /uL (0-100); Basophils Percent Auto 0.8 % (0-2); Eosinophils Absolute Auto 300 /uL (0-450); Eosinophils Percent Auto 3.4 % (2-4); Hematocrit 39.1 % (41-53); Lymphocytes Absolute Auto 1900 /uL (1100-4500); Lymphocytes Percent Auto 20.1 % (25-40); Mean Corpuscular HGB Conc 33.3 % (30-36); Mean Corpuscular Volume 84.1 fL (80-100); Monocytes Absolute Auto 1100 /uL (0-900); Monocytes Percent Auto 11.1 % (3-14); Neutrophils Absolute Auto 6200 /uL (1500-7000); Neutrophils Percent Auto 64.6 % (50-75); Platelet Count 246 X10^3/uL (150-400); Red Blood Cell Count 4.65 X10^6/uL (4.5-5.9); Red Cell Distribution Width 14.3 % (11.6-14.8); White Blood Cell Count 9.6 X10^3/uL (4.5-11.0)
[2023-09-18 13:09] LABS: Alanine Aminotransferase 9 IU/L (<50); Albumin 4.8 g/dL (3.5-5.0); Albumin Globulin Ratio 1.8 (1.0-2.8); Alkaline Phosphatase 85 U/L (38-126); Aspartate Aminotransferase 22 IU/L (17-59); BUN Creatinine Ratio 10.6 (6-22); Blood Urea Nitrogen 10 mg/dL (9-20); Calcium 9.6 mg/dL (8.4-10.2); Carbon Dioxide 21 mmol/L (22-32); Chloride 108 mmol/L (98-107); Creatine Kinase 159 U/L (55-170); Estimated Glomerular Filt Rate > 60 mL/min (>60); Globulin 2.6 g/dL (1.7-4.1); Glucose 92 mg/dL (70-100); HEMOLYSIS < 15 (0-50); Potassium 3.8 mmol/L (3.4-5.1); Sodium 140 mmol/L (137-145); Total Protein 7.4 g/dL (6.3-8.2)
[2023-09-18] MEDS: SODIUM CHLORIDE 0.9% 1,000 ML 1000 ML IV (13:43)
[2023-09-18 14:09] VITALS: BP 135/70; PULSE 67; O2SAT 100
== END 2023-09-18 15:00 | disposition home or self-care (01) ==
PROVIDERS: Emergency Provider Emergency Medicine; PCP Family Medicine
DX: G62.9 Polyneuropathy, unspecified (principal)
CPT/HCPCS: 36415; 80053; 82550; 85025; 96374; 96375; 99284; J1790; J3360

== ENCOUNTER → 2024-06-23 16:48 | Outpatient (CLI) | payer OTHER, SELFPAY ==
--- NOTE | 2024-06-23 16:52 | DI.MRI.S_ITS ---
PROCEDURE: MR STROKE Pre- and post-contrast brain MRI, non-contrast brain MR angiogram, pre- and postcontrast neck MR angiogram INDICATIONS: TREMORS,SYNCOPE,UNSTEADY ON FEET,VERT NYSTAGMUS TECHNIQUE: Brain: Noncontrast axial T1 spin echo, axial T2 fast spin echo, sagittal and axial FLAIR, coronal T2 fast spin echo, axial gradient echo, axial diffusion and ADC through the brain. After the administration of contrast, axial 3D VIBE of the cranial vasculature and brain. Brain MRA: Non-contrast 3-D time of flight MR angiogram, with multiple tcbrbzd-zhazeiwrv-leiuhqwyml (MIP) reformats performed. Neck MRA: Axial and sagittal TruFISP through the neck. Coronal dynamic MR angiogram during administration of contrast in the arterial and venous phases, with 3-dimenstional qbgvdhn-gpgtbkfna-rhfivefpcy (MIP) reformats constructed from subtraction images. COMPARISON: None. FINDINGS: Image quality: Excellent. BRAIN: CSF spaces: Ventricles are normal in size and shape. Basal cisterns are patent. No extra-axial fluid collections. Brain: Nonspecific T2/FLAIR hyperintense foci are present in the periventricular alvares radiata white matter (13/18) likely secondary to chronic microvascular ischemic changes. No intracranial bleeds or mass effects. Flores-white matter interface is normal. Diffusion weighted images show no acute infarct. Brainstem appears normal. Normal intravascular flow voids are present. No abnormal intracranial enhancement. Skull and face: Calvarial marrow signal is normal. Orbits appear normal. Sinuses: Mild mucosal thickening of the maxillary sinuses (13/5). Sinuses and mastoids are otherwise clear. BRAIN MR ANGIOGRAM: Anterior circulation: Intracranial internal carotid arteries are normal in size and enhancement. The flow within the paired anterior cerebral arteries is normal and symmetric. The flow within the middle cerebral arteries is normal and symmetric. The anterior communicating artery is seen. No stenoses, occlusions, or aneurysms. Posterior circulation: The visualized portions of the vertebral arteries demonstrate normal caliber, and join to form a normal appearing basilar artery. The flow within the posterior cerebral arteries is normal and symmetric. No stenoses, occlusions, or aneurysms. NECK MR ANGIOGRAM: Carotids: Great vessels demonstrate a conventional anatomy as they arise from the aortic arch. The origins of the common carotid arteries appear patent. The calibers and courses of both common carotid arteries are normal. The bifurcation regions appear normal bilaterally. The internal carotid arteries demonstrate normal course and caliber. Posterior circulation: The origins of the vertebral arteries appear patent. More superior portions of both vertebral arteries demonstrate normal course and caliber, and join to form a normal appearing basilar artery. Miscellaneous: Subclavian arteries appear patent. Pre-contrast images through the neck show no soft tissue abnormalities. IMPRESSION: BRAIN MRI: No acute stroke, intracranial mass effect, or abnormal enhancement. BRAIN MR ANGIOGRAM: No large vessel occlusion, dissection, or aneurysm. NECK MR ANGIOGRAM: No large vessel occlusion, dissection, or aneurysm. Dictated by: Ric Shanks M.D. on 06/23/2024 at 18:31 Approved by: Ric Shanks M.D. on 06/23/2024 at 18:38
--- NOTE | 2024-06-23 16:53 | DI.MRI.S_ITS ---
PROCEDURE: MR LUMBAR SPINE WO CON INDICATIONS: TREMORS,SYNCOPE,UNSTEADY ON FEET,VERT NYSTAGMUS TECHNIQUE: Noncontrast sagittal T1 spin echo and T2 fast echo, sagittal STIR, and T2 fast spin echo through the lumbar spine. In cases with scoliosis, additional coronal T2 fast spin echo may be performed. COMPARISON: [facility], MR, MR LUMBAR SPINE WO CON, 03/01/2018, 18:26. FINDINGS: Image quality: Excellent. Anatomy: There are 5 nonrib-bearing lumbar vertebrae. Bones: Marrow signal within normal limits. The vertebral body heights are preserved. Alignment: Preservation of the lumbar lordosis. Discs: Multilevel disc desiccation. Disc height loss at L4-L5. Spinal cord: The conus medullaris ends at the level of T12-L1. No abnormal cord signal. Muscles: Overall muscle bulk is preserved. Prevertebral: No prevertebral soft tissue edema. No abdominal aortic aneurysm. T2 hyperintense renal lesions, likely representing simple cysts (5/1). No abnormal prevertebral soft tissue mass in the noqnk-pi-vqmg. Multilevel findings: Mild disc bulging, mild-moderate facet arthropathy, mild ligamentum flavum thickening. INDIVIDUAL LEVELS: T12-L1: No central canal stenosis. No foraminal stenosis. L1-L2: No central canal stenosis. Mild bilateral foraminal stenosis. L2-L3: Disc bulge effacing the ventral thecal sac, resulting in mild central canal stenosis (5/15). Severe left and moderate right foraminal stenosis. L3-L4: No central canal stenosis. Mild bilateral foraminal stenosis. L4-L5: Disc bulge contacting the ventral thecal sac without central canal stenosis. Moderate bilateral foraminal stenosis. Bilateral subarticular and foraminal disc protrusions, resulting in contact on the descending bilateral L5 nerve roots (2/7; 2/13). L5-S1: No central canal stenosis. No foraminal stenosis. IMPRESSION: 1. No severe central canal stenosis. 2. Severe foraminal stenosis at the left L2-L3 level. 3. Bilateral subarticular and foraminal disc protrusions, resulting in contact on the bilateral descending L5 nerve roots. Please correlate with symptomatology in the corresponding dermatomal distribution. 4. Multilevel mild-moderate facet arthropathy. Dictated by: Ric Shanks M.D. on 06/23/2024 at 18:47 Approved by: Ric Shanks M.D. on 06/23/2024 at 18:55
== END ==
PROVIDERS: PCP Family Medicine; Referring Provider Family Medicine; Visit Provider Family Medicine
DX: H55.09 Other forms of nystagmus (principal); R25.1 Tremor, unspecified; R55 Syncope and collapse; R26.81 Unsteadiness on feet; M48.061 Spinal stenosis, lumbar region without neurogenic claudication; M47.816 Spondylosis without myelopathy or radiculopathy, lumbar region; M51.26 Other intervertebral disc displacement, lumbar region
CPT/HCPCS: 70544; 70549; 70553; 72148; A9579

== ENCOUNTER 2024-10-10 12:44 | Emergency (ER) | payer OTHER, SELFPAY ==
[2024-10-10 13:14] VITALS: BP 120/80; PULSE 87; RESP 19; TEMP 37.1; O2SAT 99; BMI 29.1
--- NOTE | 2024-10-10 13:18 | DI.RAD.S_ITS ---
PROCEDURE: XR RIBS LT MIN 3V W CXR1V INDICATIONS: pain after lifting tool TECHNIQUE: 2 views of the ribs were acquired, along with a single view chest. COMPARISON: None. FINDINGS: Surgical changes and devices: Postsurgical changes are seen in cervical spine.. Bones and chest wall: Subtle cortical irregularity and radiolucency involving left anterolateral 8th and 9th ribs and possibly 10th rib is seen concerning for minimally displaced fractures. This corresponds to patient's reported area of pain. No other fracture or dislocation. No suspicious bony lesions. Overlying soft tissues appear unremarkable. Lungs and pleura: No pleural effusions or pneumothorax. Lungs appear clear. Mediastinum: Mediastinal contours appear normal. Heart size is normal. IMPRESSION: Finding is concerning for minimally displaced left anterolateral 8 through possibly 10th rib fractures. No focal infiltrate, pleural effusion or pneumothorax. Dictated by: Tj Delong M.D. on 10/10/2024 at 14:09 Approved by: Tj Delong M.D. on 10/10/2024 at 14:11
[2024-10-10 14:15] VITALS: PULSE 79; O2SAT 97
--- NOTE | 2024-10-10 14:44 | DI.CT.S_ITS ---
PROCEDURE: CT CHEST WO CON INDICATIONS: ?rib fx TECHNIQUE: Noncontrast 5 mm thick sections acquired from the pulmonary apices to the posterior costophrenic angles. 1 mm lung window, 5 mm thick coronal and sagittal and 7 mm axial MIP reformats were then acquired. For radiation dose reduction, the following was used: automated exposure control, adjustment of mA and/or kV according to patient size. COMPARISON: [facility], CR, XR RIBS LT MIN 3V W CXR1V, 10/10/2024, 13:14. FINDINGS: Image quality: Diagnostic. Lower Neck: No enlarged lymph nodes. Thyroid: No thyroid nodules which require sonographic follow up, per consensus guidelines. Axillae: No enlarged lymph nodes. Chest Wall: Unremarkable. Bones: Postsurgical changes are noted in included portion of cervical spine from prior cervical spine fusion. No acute vertebral body compression fracture is seen. Cortical irregularity involving left anterolateral 8th and 9th ribs near costal chondral junction best seen on series 4, image 104 and series 4 image 112 consistent with nondisplaced fractures in this area. No other rib fracture is seen. No suspicious intraosseous lesions. Lungs and Pleura: No pneumothorax or pleural effusions. Ill-defined patchy airspace opacities are seen scattered in posterior and lateral periphery of right lower lobe concerning for small right lower lobe infiltrates. Left lung is clear. Heart: Heart size is normal. No pericardial effusion. Thoracic Vessels: The aorta and pulmonary arteries demonstrate normal size. Mediastinum and Sheron: No enlarged lymph nodes. Esophagus: Fluid and stented distal esophagus. No wall thickening. Moderate size hiatal hernia. Upper Abdomen: Visualized upper abdomen solid organs and bowel loops appear normal. Gastric banding is seen. Up IMPRESSION: 1. Subtle nondisplaced or minimally displaced fractures involving left anterolateral 8th and 9th ribs near costal chondral junction. No other fracture or dislocation is seen. 2. Small airspace opacities scattered in right lower lobe concerning for patchy right lower lobe infiltrates. No pleural effusion or pneumothorax. Follow-up until resolution is recommended to rule out underlying neoplastic process. Dictated by: Tj Delong M.D. on 10/10/2024 at 15:14 Approved by: Tj Delong M.D. on 10/10/2024 at 15:23
--- NOTE | 2024-10-10 15:57 | DI.CT.S_ITS ---
PROCEDURE: CT ABDOMEN PELVIS W CON INDICATIONS: ?inrtraabdominal injury TECHNIQUE: After the administration of intravenous contrast, axial sections acquired from the lung bases to the pubic symphysis. Coronal and sagittal reformats were performed. For radiation dose reduction, the following was used: automated exposure control, adjustment of mA and/or kV according to patient size. COMPARISON: None. FINDINGS: Image quality: Diagnostic. Lower Chest: No significant findings. ABDOMEN: Liver: No solid mass. Gallbladder: No radiopaque gallstones or wall thickening. Biliary ducts: No biliary dilation. Pancreas: No ductal dilation. Spleen: Size is within normal limits. Adrenal Glands: No adrenal nodules. Kidneys and Ureters: No hydronephrosis. No solid mass. No complex renal cystic lesion which requires follow up. Stomach and Bowel: There is no ascites. No dilatation seen. Gastric lap band, with mild dilatation of the distal thoracic esophagus. Peritoneum: No abnormal intraperitoneal fluid. No free air. Ventral Wall: No significant ventral hernia. Abdominal Nodes: No retroperitoneal or mesenteric adenopathy by size criteria. Vessels: Aorta and inferior vena cava are normal in size. PELVIS: Pelvic Organs: Unremarkable. Bladder: No bladder wall thickening, accounting for underdistention. Pelvic Nodes: No enlarged lymph nodes. Miscellaneous: No inguinal hernias are seen. Bones: No aggressive osseous abnormality. IMPRESSION: 1. No acute traumatic lesions in the abdomen and pelvis. 2. Please refer also to report of study of the chest performed the same date for additional findings. Dictated by: Stephen Hawkins M.D. on 10/10/2024 at 16:24 Approved by: Stephen Hawkins M.D. on 10/10/2024 at 16:30
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
[2024-10-10] MEDS: HYDROMORPHONE 1 MG INJ IV ×2 (16:20→17:36)
[2024-10-10 16:23] LABS: Add Manual Diff / Slide Review NO; Basophils Absolute Auto 100 /uL (0-100); Basophils Percent Auto 0.5 % (0-2); Eosinophils Absolute Auto 100 /uL (0-450); Hematocrit 36.3 % (41-53); Hemoglobin 11.5 g/dL (13.5-17.5); Lymphocytes Absolute Auto 2400 /uL (1100-4500); Lymphocytes Percent Auto 21.6 % (25-40); Mean Corpuscular HGB Conc 31.8 % (30-36); Mean Corpuscular Hemoglobin 23.9 PG (26-34); Mean Corpuscular Volume 75.1 fL (80-100); Monocytes Absolute Auto 700 /uL (0-900); Monocytes Percent Auto 6.8 % (3-14); Neutrophils Absolute Auto 7700 /uL (1500-7000); Neutrophils Percent Auto 70.1 % (50-75); Platelet Count 291 X10^3/uL (150-400); Red Blood Cell Count 4.84 X10^6/uL (4.5-5.9); Red Cell Distribution Width 16.6 % (11.6-14.8)
[2024-10-10 16:33] LABS: Prothrombin Time 11.5 SECONDS (9.4-12.5)
[2024-10-10 16:36] LABS: PTT Partial Thromboplastin Tim 38 SECONDS (25.1-36.5)
[2024-10-10 16:39] LABS: Alanine Aminotransferase 11 IU/L (<50); Albumin 4.6 g/dL (3.5-5.0); Albumin Globulin Ratio 1.8 (1.0-2.8); Alkaline Phosphatase 91 U/L (38-126); Aspartate Aminotransferase 32 IU/L (17-59); BUN Creatinine Ratio 8.3 (6-22); Bilirubin Total 0.6 mg/dL (0.2-1.3); Blood Urea Nitrogen 9 mg/dL (9-20); Calcium 9.5 mg/dL (8.4-10.2); Carbon Dioxide 23 mmol/L (22-32); Chloride 105 mmol/L (98-107); Estimated Glomerular Filt Rate > 60 mL/min (>60); Globulin 2.6 g/dL (1.7-4.1); Glucose 81 mg/dL (70-99); HEMOLYSIS < 15 (0-50); Lipase 88 U/L (23-300); Sodium 139 mmol/L (137-145); Total Protein 7.2 g/dL (6.3-8.2)
[2024-10-10 18:26] VITALS: BP 142/69; PULSE 73; RESP 17; O2SAT 98
== END 2024-10-10 18:27 | disposition home or self-care (01) ==
PROVIDERS: Emergency Provider Student in an Organized Health Care Education/Training Program; PCP Family Medicine
DX: S22.42XA Multiple fractures of ribs, left side, initial encounter for closed fracture (principal); X58.XXXA Exposure to other specified factors, initial encounter
CPT/HCPCS: 36415; 71101; 71250; 74177; 80053; 83605; 83690; 85025; 85610; 85730; 96374; 96376; 99284; J1171; Q9967

== ENCOUNTER → 2024-11-09 15:48 | Outpatient (CLI) | payer OTHER, SELFPAY ==
--- NOTE | 2024-11-09 15:50 | DI.CT.S_ITS ---
PROCEDURE: CT CHEST W CON INDICATIONS: ATELECTASIS OF RIGHT LUNG TECHNIQUE: After the administration of intravenous contrast, 5 mm thick sections acquired from the pulmonary apices to the posterior costophrenic angles. 1 mm axial lung, 5 mm thick coronal and sagittal reformats and 7 mm axial MIP were acquired. For radiation dose reduction, the following was used: automated exposure control, adjustment of mA and/or kV according to patient size. COMPARISON: [facility], CT, CT CHEST WO [facility], 10/10/2024, 14:54. FINDINGS: Image quality: Diagnostic. Lower Neck: No enlarged lymph nodes. Thyroid: No thyroid nodules which require sonographic follow up, per consensus guidelines. Axillae: No enlarged lymph nodes. Chest Wall: Unremarkable. Bones: Healing left anterior rib fractures. Lungs and Pleura: No pneumothorax or pleural effusions. Resolved right lung endobronchial nodules. Heart: Heart size is normal. No pericardial effusion. Thoracic Vessels: The aorta and pulmonary arteries demonstrate normal size. Mediastinum and Sheron: No enlarged lymph nodes. Esophagus: Significant distension the lower esophagus with fluid. Upper Abdomen: Gastric balloon surgery. Phi angle of 38???, which is appropriate. IMPRESSION: Resolved endobronchial nodules. Gastric balloon surgery with appropriate phi angle. However, there is significant distension of the distal esophagus which may indicate overinflation. Dictated by: Ishan Cormier M.D. on 11/10/2024 at 11:08 Approved by: Ishan Cormier M.D. on 11/10/2024 at 11:11
== END ==
LOC: CT 15:48
PROVIDERS: PCP Family Medicine; Referring Provider Family Medicine; Visit Provider Family Medicine
DX: J98.11 Atelectasis (principal); K22.89 Other specified disease of esophagus; Z98.84 Bariatric surgery status
CPT/HCPCS: 71260; Q9967